=== PATIENT | male | born 1930 ===

== ENCOUNTER 2017-12-11 22:29 | Inpatient (IN) | payer OTHER, MEDICARE ==
[~2017-12-11] VITALS: Ht 162.6 cm; Wt 44.9 kg
--- NOTE | 2017-12-11 22:30 | NUR ---
PT RECEIVED IN ER. PLACED ON CASE VENT WITH VENT SETTINGS OF AC 14, VT 500, FIO2 28%. PT IS TRACHED WITH A PORTEX #8 TRACH. TRACH IS PATENT AND SECURED WITH TRACH TIES. VENT PARAMETERS CHECKED. VENT ALARMS CHECKED. ALARMS ARE ON AND AUDIBLE. SUCTIONED A LARGE AMOUNT OF THICK, GREENISH SECRETIONS. PT RECEIVED TACHYCARDIC. PULSE RATE 128. SPO2 93%. AMBU BAG IS AT BEDSIDE. WILL CONTINUE TO MONITOR.
--- NOTE | 2017-12-11 22:35 | NUR ---
Pt lamonte from [facility] for initial complaint of fast heart rate. Pt trach vent dependent tachypneic, hot to touch and tachycardic with low blood pressure. Dr. Dinh called to bedside. RT at bedside.
--- NOTE | 2017-12-11 22:38 | NUR ---
Dr. Dinh at bedside for MSE
--- NOTE | 2017-12-11 22:44 | NUR ---
Code sepsis called and initiated.
[2017-12-11] MEDS ORDERED: ACETAMINOPHEN 650 MG SUPP.RECT RC ONE ×2 (22:45→23:38)
[2017-12-11] MEDS ORDERED: PIPERACILLIN SODIUM/TAZOBACTAM 3.375 G in IV DEXTROSE 5% 50 ML IV ONE (22:45)
[2017-12-11] MEDS ORDERED: IV NORMAL SALINE 1000 ML BAG IV ONE (22:45)
[2017-12-11] MEDS ORDERED: VANCOMYCIN IV 1,000 MG in IV DEXTROSE 5% 250 ML IV ONE ×2 (22:45→23:45)
--- NOTE | 2017-12-11 23:00 | NUR ---
IV established, labs drawn and sent. Fluid bolus infusing freely to gravity. Indwelling steel pt arrived with dc'd and new steel established. Pt medicated for temp, will monitor for effects of medication. Pt repositioned for comfort.
[2017-12-11 23:08] LABS: BASOPHILS # (AUTO) 0.1 K/uL (0.0-8.0); BASOPHILS % (AUTO) 0.5 % (0.0-2.0); EOSINOPHILS # (AUTO) 0.1 K/uL (0.0-0.7); EOSINOPHILS % (AUTO) 0.4 % (0.0-7.0); HEMATOCRIT 29.1 % (36.7-47.1); HEMOGLOBIN 9.9 g/dL (12.5-16.3); LYMPHOCYTES # (AUTO) 0.5 K/uL (20.0-40.0); LYMPHOCYTES % (AUTO) 2.2 % (20.5-51.5); MEAN CORPUSCULAR HEMOGLOBIN 29.7 uug (23.8-33.4); MEAN CORPUSCULAR HGB CONC 34 g/dL (32.5-36.3); MEAN CORPUSCULAR VOLUME 87.8 fL (73.0-96.2); MONOCYTES # (AUTO) 0.8 K/uL (2.0-10.0); NEUTROPHILS # (AUTO) 19.6 K/uL (1.8-8.9); NEUTROPHILS % (AUTO) 92.9 % (38.5-71.5); PLATELET COUNT (AUTO) 529 K/uL (152-348); RED BLOOD CELL COUNT(AUTO) 3.31 MIL/uL (4.06-5.63); WHITE BLOOD COUNT (AUTO) 21.1 K/uL (3.6-10.2)
[2017-12-11] MEDS ORDERED: METO-356 GT (23:08)
[2017-12-11] MEDS ORDERED: HEPARIN 5000 UNIT INJ (23:08)
[2017-12-11] MEDS ORDERED: TRAM50TA2 GT ×2 (23:08)
[2017-12-11] MEDS ORDERED: ACET-2154 GT (23:08)
[2017-12-11] MEDS ORDERED: LACT1CAP61 GT (23:08)
[2017-12-11] MEDS ORDERED: FERR220S2 GT (23:08)
[2017-12-11] MEDS ORDERED: ASCO500C16 GT (23:08)
[2017-12-11] MEDS ORDERED: NA P133E RC (23:08)
[2017-12-11] MEDS ORDERED: DOCU-141 GT (23:08)
[2017-12-11] MEDS ORDERED: ACET-2605 PO (23:08)
[2017-12-11] MEDS ORDERED: CRAN3875 GT (23:08)
[2017-12-11] MEDS ORDERED: [UNRECOGNIZED DRUG - OTHER] GT (23:08)
[2017-12-11] MEDS ORDERED: PANT40TA2 GT (23:08)
[2017-12-11] MEDS ORDERED: BISA5TAB13 PR (23:08)
[2017-12-11] MEDS ORDERED: MULT-213 GT (23:08)
[2017-12-11] MEDS ORDERED: ONDA4TAB5 GT (23:08)
[2017-12-11] MEDS ORDERED: MAGN400O6 GT (23:08)
[2017-12-11] MEDS ORDERED: ZINC220C8 GT (23:08)
[2017-12-11 23:23] LABS: ABG BASE EXCESS 1.6 mmol/L; ABG HCO3 24.6 mmol/L; ABG PCO2 33.3 mmHg (35.0-45.0); ABG PH 7.487 (7.350-7.450); ABG PO2 53.6 mmHg (75.0-100.0); ABG SITE RIGHT BRACHIAL; ABG TOTAL HEMOGLOBIN 10.6 G/dL (13.5-18.0); COHb 0.8 % (0.5-1.5); MetHb 0.4 % (0.0-1.5); VENT MODE VENT - A/C; VT, ABG 500 mL
[2017-12-11] MEDS ORDERED: VANCOMYCIN IV 200 ML ONE (23:30)
--- NOTE | 2017-12-11 23:30 | NUR ---
FIO2 INCREASED TO 50% PER ABG RESULT. SETTINGS ARE NOW AC 14, VT 500, FIO2 50%. SPO2 NOW 100%. VENT CHECK DONE. PEAK FLOW INCREASED TO 75 TO MAINTAIN 1:2 I:E RATIO. WILL ADJUST VENT SETTINGS ACCORDINGLY. SUCTIONED MODERATE AMOUNT OF THICK, GREENISH SECRETIONS. WILL CONTINUE TO MONITOR PT.
[2017-12-11 23:31] LABS: *BILIRUBIN,URIN NEGATIVE (NEGATIVE); *BLOOD, URINE 3+ (NEGATIVE); *CLARITY,URINE CLOUDY (CLEAR); *COLOR,URINE YELLOW (YELLOW); *KETONES,URINE NEGATIVE (NEGATIVE); *PROTEIN,URINE 2+ (NEGATIVE); *UROBILINOGEN,URINE 0.2 E.U./dl (NORMAL); LEUKOCYTE ESTERASE ,URINE 3+ (NEGATIVE); NITRITE, URINE NEGATIVE (NEGATIVE); PH,URINE 7.5 (5.0-8.0); UGLUCOSE NEGATIVE (NEGATIVE)
[2017-12-11] MEDS ORDERED: PIPERACILLIN/TAZOBACTAM/D5W 50 ML IV ONE (23:31)
[2017-12-11 23:34] LABS: ALANINE AMINOTRANSFERASE 29 U/L (16-63); ALKALINE PHOSPHATASE 204 U/L (50-136); ASPARTATE AMINOTRANSFERASE 23 U/L (15-37); BILIRUBIN,DIRECT 0.1 mg/dL (0.0-0.2); BILIRUBIN,TOTAL 0.2 mg/dL (0.2-1.0); CARBON DIOXIDE 28 mmol/L (21-32); CHLORIDE 101 mmol/L (98-107); CREATININE 2.2 mg/dL (0.6-1.3); GLUCOSE 139 mg/dL (74-106); POTASSIUM 5.3 mmol/L (3.5-5.1); TOTAL PROTEIN, SERUM 8.3 g/dL (6.4-8.2)
[2017-12-11 23:38] LABS: UREA NITROGEN, BLOOD 130 mg/dL (7-18)
[2017-12-11 23:43] LABS: BACTERIA,URINE MODERATE /HPF (NONE SEEN); RBC,URINE TNTC /HPF (0-3); SQUAMOUS EPITHELIAL CELL,UR FEW /HPF (NONE SEEN); WBC,URINE TNTC /HPF (0-3)
[2017-12-11] MEDS ORDERED: AMIKACIN SULFATE 500 MG/2 ML VIAL IV ONE (23:45)
[2017-12-12] VITALS (7 sets, daily range): BP systolic 86–100; BP diastolic 37–52
[2017-12-12] MEDS ORDERED: METRONIDAZOLE 500 MG/NS 100 ML PIGGYBACK IV ONE (00:15)
[2017-12-12] MEDS ORDERED: AMIKACIN SULFATE 500 MG/2 ML VIAL ONE (00:28)
--- NOTE | 2017-12-12 01:09 | NUR ---
MD notified of pt's bp, fluid bolus started. Will monitor for effects of bolus
[2017-12-12] MEDS ORDERED: IV NORMAL SALINE 1000 ML BAG IV ONE (01:15)
--- NOTE | 2017-12-12 01:23 | NUR ---
Report called to TRINI Burgos. Preparing to transfer pt to the floor.
[2017-12-12] MEDS ORDERED: METRONIDAZOLE 500 MG/NS 100ML 100 ML IV ONE (01:29)
--- NOTE | 2017-12-12 02:15 | NUR ---
nsg: pt received fr er via [facility] with dx of sepsis, uti. hx of chronic vent dependent, cva with right sided weakness. no acute distress noted. O2 sat is 98% on 50% FIO2. gt clamped. has multiple pressure ulcer noted. cont to monitor.
[2017-12-12] MEDS ORDERED: ALBUTEROL SULFATE 2.5 MG/3 ML NEBU NEB PRN (02:45)
[2017-12-12] MEDS ORDERED: MORPHINE SULFATE 2 MG/1 ML DISP.SYRIN IV PRN (02:45)
[2017-12-12] MEDS ORDERED: IPRATROPIUM BROMIDE 0.5 MG/2.5 ML NEBU NEB PRN (02:45)
[2017-12-12] MEDS ORDERED: PIPERACILLIN/TAZOBACTAM/D5W 50 ML ONE (05:27)
[2017-12-12 05:37] LABS: ABG BASE EXCESS 0.1 mmol/L; ABG HCO3 23.3 mmol/L; ABG PCO2 32.5 mmHg (35.0-45.0); ABG PH 7.473 (7.350-7.450); ABG SITE LEFT RADIAL; ABG TOTAL HEMOGLOBIN 10.7 G/dL (13.5-18.0); COHb 0.5 % (0.5-1.5); MetHb 0.2 % (0.0-1.5); O2Hb 98.5 % (94.0-97.0); VENT MODE VENT - A/C; VT, ABG 500 mL
[2017-12-12] MEDS: PIPERACILLIN/TAZOBACTAM/D5W 2.25 G in PREMIXED 1 EACH IV SCH ×2 (05:37→12:13)
[2017-12-12] MEDS: IV D5/ 0.9% NACL 1,000 ML IV PRN ×2 (05:37→17:45)
[2017-12-12] MEDS: PANTOPRAZOLE ORAL SUSPENSION 40 MG SUSPDR.PKT GT SCH (05:39)
--- NOTE | 2017-12-12 05:49 | NUR ---
Patient received on AC 14, vt500, 50%fiO2. Decreased FiO2 to 40% per new ABG results. RN Jeanie notified. SXN moderate amounts of thin yellow secretions. AMbubag and spare trach [Portex8] are at bedside. Airway is patent and secured at midline. Will continue to monitor.
[2017-12-12] MEDS ORDERED: Medication Not On Formulary EA (Multivitamins W-Minerals (Multivitamin With Minerals) 1 GT SCH (06:00)
[2017-12-12 06:48] LABS: BASOPHILS % (AUTO) 0.1 % (0.0-2.0); EOSINOPHILS # (AUTO) 0.1 K/uL (0.0-0.7); EOSINOPHILS % (AUTO) 0.3 % (0.0-7.0); HEMATOCRIT 26.6 % (36.7-47.1); HEMOGLOBIN 8.7 g/dL (12.5-16.3); LYMPHOCYTES # (AUTO) 0.6 K/uL (20.0-40.0); LYMPHOCYTES % (AUTO) 2.8 % (20.5-51.5); MEAN CORPUSCULAR HGB CONC 33 g/dL (32.5-36.3); MEAN CORPUSCULAR VOLUME 89.1 fL (73.0-96.2); MONOCYTES % (AUTO) 4.9 % (0.0-11.0); NEUTROPHILS # (AUTO) 19.1 K/uL (1.8-8.9); NEUTROPHILS % (AUTO) 91.9 % (38.5-71.5); PLATELET COUNT (AUTO) 413 K/uL (152-348); RED BLOOD CELL COUNT(AUTO) 2.99 MIL/uL (4.06-5.63); WHITE BLOOD COUNT (AUTO) 20.7 K/uL (3.6-10.2)
[2017-12-12 06:50] LABS: ALANINE AMINOTRANSFERASE 23 U/L (16-63); ALKALINE PHOSPHATASE 169 U/L (50-136); ASPARTATE AMINOTRANSFERASE 22 U/L (15-37); BILIRUBIN,TOTAL 0.2 mg/dL (0.2-1.0); CARBON DIOXIDE 24 mmol/L (21-32); CHLORIDE 107 mmol/L (98-107); GLUCOSE 137 mg/dL (74-106); HDL CHOLESTEROL 25 mg/dL (40-60); MAGNESIUM 1.9 mg/dL (1.8-2.4); PHOSPHOROUS 2.9 mg/dL (2.5-4.9); POTASSIUM 4.6 mmol/L (3.5-5.1); TOTAL PROTEIN, SERUM 7.1 g/dL (6.4-8.2); TRIGLYCERIDES 32 MG/DL (30-150)
[2017-12-12 07:04] LABS: CHOLESTEROL < 50 mg/dL (<200)
[2017-12-12 07:08] LABS: UREA NITROGEN, BLOOD 118 mg/dL (7-18)
--- NOTE | 2017-12-12 07:50 | NUR ---
PT RECEIVED ON CASE VENT WITH CURRENT VENT SETTINGS OF AC 14, VT 500, AND 40% FIO2. #8 PORTEX TRACH IS PATENT AND SECURED WITH TRACH TIE. VENT ALARMS ARE ON AND AUDIBLE. VENT PLUGGED INTO RED OUTLET. PT IS TOLERATING VENT SETTINGS WELL, NO SIGNS OF RESPIRATORY DISTRESS NOTED, PRN TX NOT GIVEN AT THIS TIME. SUCTIONED A SMALL AMOUNT OF THICK WHITE AND YELLOW SECRETIONS. AMBU-BAG AND BACK-UP TRACH IS AT BESIDE. WILL CONTINUE TO MONITOR THROUGHOUT SHIFT.
[2017-12-12] MEDS ORDERED: DOSING PER PHARMACY-AMIKACIN IV XX PRN (08:00)
[2017-12-12] MEDS ORDERED: ZINC SULFATE 220 MG CAPSULE GT SCH (09:00)
[2017-12-12] MEDS ORDERED: [UNRECOGNIZED DRUG - OTHER] GT SCH (09:00)
[2017-12-12] MEDS ORDERED: Medication Not On Formulary EA (Ascorbic Acid (Vitamin C CAPSULE) 500 MG) GT SCH (09:00)
[2017-12-12] MEDS ORDERED: HEPARIN INJ SCH (09:00)
[2017-12-12] MEDS ORDERED: Medication Not On Formulary EA (Lactobacillus Acidophilus (Acidophilus) 1 EACH) GT SCH (09:00)
[2017-12-12] MEDS: FERROUS SULFATE 300 MG/5 ML LIQUID UDC GT SCH (09:14)
[2017-12-12] MEDS: ZINC SULFATE 220 MG CAPSULE GT SCH (09:15)
[2017-12-12] MEDS: DOCUSATE SODIUM 100 MG CAPSULE PO SCH ×2 (09:15→17:44)
[2017-12-12] MEDS: ACIDOPHILUS/BULGARICUS CHEW TAB GT SCH (09:15)
[2017-12-12] MEDS: MULTIVIT, IRON, MIN NO. 8, FA TABLET GT SCH (09:15)
[2017-12-12] MEDS: ASCORBIC ACID 500 MG TABLET GT SCH (09:15)
[2017-12-12] MEDS: HEPARIN SODIUM,PORCINE 5,000 UNITS/ML VIAL SQ SCH ×2 (09:16→20:22)
[2017-12-12] MEDS: PROTEIN SUPPLEMENT (PROSTAT) 30 ML LIQUID GT SCH (09:19)
--- NOTE | 2017-12-12 11:30 | NUR ---
hypotension 86/30 and 88/35. Dr Adams made aware. fluid challenge of 1 liter IV bolus given. gt site with purulent drainage. spec sent to lab for c/s. nasal swab collected for mrsa. as well Addendum: 12/12/17 at 1130 by RUBIN KAUR RN Amended: Links added.
[2017-12-12] MEDS ORDERED: IV NS 1000 ML 1,000 ML IV ONE (11:45)
--- NOTE | 2017-12-12 12:12 | NUR ---
bp 114/54 post fluid challenge Addendum: 12/12/17 at 1213 by RUBIN KAUR RN Amended: Links added.
--- NOTE | 2017-12-12 12:12 | NUR ---
Clinical Pharmacy Note: Amikacin Dosing per Pharmacy Subjective: Amikacin IV to start on this 87 yo male patient for pna & uti (recent hospitalization). Patient received amikacin 500mg IV x1 in ED on 12/12 at midnight ht 162.5 cm wt 46.7 kg Objective: BUN 118/Scr 2 WBC 20.7 Temperature 98.6 Assessment/Plan: Due to elevated srcr & advanced age, will dose by fall off level. Since patient received a dose today in ED, no dose shall be due today. Plan to check amikacin random level tomorrow at 11am for further dosing. Pharmacy shall review srcr in am & adjust the time of draw accordingly. Will follow daily.
--- NOTE | 2017-12-12 16:38 | NUR ---
maikel care done. pending wound consult Addendum: 12/12/17 at 1638 by RUBIN KAUR RN Amended: Links added.
--- NOTE | 2017-12-12 19:43 | NUR ---
Pt received on Yancey vent with current settings of AC 14, VT 500, FiO2 40%. Pt is trached with a Portex 8 trach, which is secure and patent. Pt tolerating vent settings well at this time, no signs of respiratory distress noted. Suctioned pt with small amount of thick pale-yellowish secretions. Continuous pulse ox on, saturation is 100% at this time. Vent alarms functioning and audible, vent plugged in red outlet. Ambu-bag and back-up trach at bedside. Will continue to monitor pt throughout shift.
[2017-12-12] MEDS: LINEZOLID 600 MG TABLET GT SCH (20:21)
[2017-12-12] MEDS: Z GUARD REMEDY PASTE 57 GM TUBE TOP SCH (20:22)
[2017-12-12] MEDS: ACETAMINOPHEN 325 MG TABLET GT PRN (20:23)
--- NOTE | 2017-12-12 21:00 | NUR ---
Still on Yancey vent w/ same settings: AC 14, vt500, FiO2 to 40% w/ trach portex #8 intact. No signs of distress noted. Vital signs WNL. Tele shows NSR.
--- NOTE | 2017-12-12 21:32 | NUR ---
S/P PICC line insertion, double lumen DEENA.
[2017-12-13] VITALS: BP 114/54
--- NOTE | 2017-12-13 | NUR ---
Turned & repositioned, wound care dressing change initiated.
[2017-12-13 04:00] VITALS: BP 121/69
[2017-12-13] MEDS: IV D5/ 0.9% NACL 1,000 ML IV PRN ×2 (05:15→18:57)
[2017-12-13] MEDS: PANTOPRAZOLE ORAL SUSPENSION 40 MG SUSPDR.PKT GT SCH (06:12)
[2017-12-13] MEDS: Z GUARD REMEDY PASTE 57 GM TUBE TOP PRN (06:12)
--- NOTE | 2017-12-13 06:31 | NUR ---
Fibersource HN at 55 ml feeding started. Gtube intact. kept HOB elevated 45 degrees. Suctioned secretions via trach PRN. Sinus rhythm on the monitor.
[2017-12-13 07:02] LABS: BASOPHILS % (AUTO) 0.3 % (0.0-2.0); EOSINOPHILS # (AUTO) 0.4 K/uL (0.0-0.7); EOSINOPHILS % (AUTO) 2.7 % (0.0-7.0); HEMATOCRIT 26.9 % (36.7-47.1); HEMOGLOBIN 8.7 g/dL (12.5-16.3); LYMPHOCYTES # (AUTO) 0.7 K/uL (20.0-40.0); LYMPHOCYTES % (AUTO) 4.7 % (20.5-51.5); MEAN CORPUSCULAR HEMOGLOBIN 29.3 uug (23.8-33.4); MEAN CORPUSCULAR HGB CONC 32 g/dL (32.5-36.3); MEAN CORPUSCULAR VOLUME 90.4 fL (73.0-96.2); MONOCYTES # (AUTO) 0.7 K/uL (2.0-10.0); NEUTROPHILS # (AUTO) 12.8 K/uL (1.8-8.9); NEUTROPHILS % (AUTO) 87.3 % (38.5-71.5); PLATELET COUNT (AUTO) 413 K/uL (152-348); RED BLOOD CELL COUNT(AUTO) 2.98 MIL/uL (4.06-5.63); WHITE BLOOD COUNT (AUTO) 14.7 K/uL (3.6-10.2)
[2017-12-13 07:20] LABS: ALANINE AMINOTRANSFERASE 22 U/L (16-63); ALKALINE PHOSPHATASE 153 U/L (50-136); ASPARTATE AMINOTRANSFERASE 22 U/L (15-37); BILIRUBIN,TOTAL 0.2 mg/dL (0.2-1.0); CARBON DIOXIDE 25 mmol/L (21-32); CHLORIDE 114 mmol/L (98-107); CREATININE 1.9 mg/dL (0.6-1.3); GLUCOSE 117 mg/dL (74-106); PHOSPHOROUS 3.5 mg/dL (2.5-4.9)
[2017-12-13 07:24] VITALS: BP 110/52
[2017-12-13] MEDS ORDERED: FIBERSOURCE HN 1000ML LIQUID GT SCH (07:45)
[2017-12-13 07:46] LABS: UREA NITROGEN, BLOOD 89 mg/dL (7-18)
[2017-12-13 08:38] LABS: LYMPHOCYTES % (MANUAL) 5 % (20-40); MONOCYTES % (MANUAL) 5 % (2-10); NEUTROPHILS % (MANUAL) 90 % (42-75)
[2017-12-13] MEDS: FERROUS SULFATE 300 MG/5 ML LIQUID UDC GT SCH (09:01)
[2017-12-13] MEDS: MULTIVIT, IRON, MIN NO. 8, FA TABLET GT SCH (09:01)
[2017-12-13] MEDS: ACIDOPHILUS/BULGARICUS CHEW TAB GT SCH (09:01)
[2017-12-13] MEDS: ZINC SULFATE 220 MG CAPSULE GT SCH (09:01)
[2017-12-13] MEDS: DOCUSATE SODIUM 100 MG CAPSULE PO SCH (09:01)
[2017-12-13] MEDS: ASCORBIC ACID 500 MG TABLET GT SCH (09:01)
[2017-12-13] MEDS: Z GUARD REMEDY PASTE 57 GM TUBE TOP SCH ×2 (09:02→21:10)
[2017-12-13] MEDS: LINEZOLID 600 MG TABLET GT SCH ×2 (09:08→20:54)
[2017-12-13] MEDS: HEPARIN SODIUM,PORCINE 5,000 UNITS/ML VIAL SQ SCH ×2 (09:09→20:56)
[2017-12-13] MEDS: PROTEIN SUPPLEMENT (PROSTAT) 30 ML LIQUID GT SCH (11:54)
[2017-12-13 12:12] VITALS: BP 139/77
--- NOTE | 2017-12-13 14:41 | NUR ---
WOUND CARE CONSULT: PT FOLLOWED BY SURGICAL TEAM FOR MULTIPLE WOUNDS. DEFER TO SURGICAL TEAM FOR WOUND TREATMENT PLAN. PT ON FIRST STEP CIRRUS MATTRESS. ALL SKIN PROTECTION MEASURES IN PLACE. DISCUSSED WITH NURSING STAFF. MD IN AGREEMENT WITH PLAN OF CARE. CURRENT MARIANNA SCORE IS 11.
[2017-12-13 15:54] VITALS: BP 107/50
--- NOTE | 2017-12-13 17:12 | NUR ---
Clinical Pharmacy Note: Amikacin Dosing per Pharmacy Subjective: Amikacin IV to continue on this 87 yo male patient for pna & uti (recent hospitalization). Patient received amikacin 500mg IV x1 in ED on 12/12 at midnight ht 162.5 cm wt 46.7 kg Objective: BUN 118/Scr 2 WBC 20.7 Temperature 98.6 Assessment/Plan: Due to elevated srcr & advanced age, will dose by fall off level. Amikacin level is ordered today at 1100(result is not out yet). Will follow the level for further dosing. Addendum: 12/13/17 at 1756 by ELLIS MENCHACA ADM Amikacin random level is 5.3 (results reporte now @ 1800) will give another dose of 500 mg x 1
[2017-12-13] MEDS ORDERED: AMIKACIN IV SCH (18:15)
[2017-12-13] MEDS ORDERED: NORMAL SALINE IV SCH (18:15)
[2017-12-13 18:23] LABS: *BILIRUBIN,URIN NEGATIVE (NEGATIVE); *BLOOD, URINE 2+ (NEGATIVE); *COLOR,URINE YELLOW (YELLOW); *KETONES,URINE NEGATIVE (NEGATIVE); *PROTEIN,URINE 2+ (NEGATIVE); *UROBILINOGEN,URINE 0.2 E.U./dl (NORMAL); LEUKOCYTE ESTERASE ,URINE TRACE (NEGATIVE); NITRITE, URINE NEGATIVE (NEGATIVE); UGLUCOSE NEGATIVE (NEGATIVE)
[2017-12-13] MEDS ORDERED: AMIKACIN IV ONE (18:30)
[2017-12-13] MEDS ORDERED: NORMAL SALINE IV ONE (18:30)
--- NOTE | 2017-12-13 18:30 | NUR ---
No residual noted on GTube feeding pt tolerating. Pt is in no acute distress. Consent signed for debridement and equipment setup in the room. Call light is within reach.
[2017-12-13 18:35] LABS: *CLARITY,URINE HAZY (CLEAR)
[2017-12-13 18:37] LABS: COARSE GRANULAR CASTS,URINE 0-3 /LPF; MUCUS,URINE FEW /LPF (0-FEW); RBC,URINE 50-80 /HPF (0-3); SQUAMOUS EPITHELIAL CELL,UR FEW /HPF (NONE SEEN)
[2017-12-13 18:51] LABS: *CREATININE,URINE 16.8 mg/dL (30-125); *URINE TOTAL PROTEIN RANDOM 101.3 mg/dL (<150/24HR)
--- NOTE | 2017-12-13 19:18 | NUR ---
Pt rec'd on Yancey settings AC 14, VT 500 and FIO2-40%. No resp. distress noted. Portex 8 is patent and secure. B/U Portex 8 and BVM at bedside. Pt to be monitored throughhout the shift and adm'd resp neb txs PRN per MD orders. Yancey alarm parameters have been checked and remain audible.
[2017-12-13 19:44] LABS: YEAST,URINE FEW /HPF (NONE SEEN)
[2017-12-13 20:00] VITALS: BP 121/55
[2017-12-13 20:01] LABS: *OCCULT BLOOD STOOL POSITIVE (NEGATIVE)
[2017-12-13] MEDS: DOCUSATE SODIUM 100 MG/10 ML LIQUID UDC GT SCH (20:54)
[2017-12-13] MEDS: ACETAMINOPHEN 325 MG TABLET GT PRN (20:54)
--- NOTE | 2017-12-13 21:32 | NUR ---
Patient awake, on Yancey vent w/ same settings: AC 14, vt500, FiO2 to 40% w/ trach portex #8 intact. Coughing on & off, suctioned PRN. Thick greenish to yellowish secretions noted. Tolerating continuos G-tube feeding of Fibersource HN at 55 ml/hr, no residual. kept HOB up. Vital signs WNL. Tele shows NSR.
[2017-12-14] VITALS: BP 128/64
--- NOTE | 2017-12-14 | NUR ---
Vital signs WNL. NPO status, G-tube feeding held for now. For procedure in AM. Sinus rhythm on the monitor.
--- NOTE | 2017-12-14 04:28 | NUR ---
Wound care treatment, oral care & bed bath provided today. G-tube clamped at this time, for wound debridement today. Suctioned trach & oral PRN. Vital signs remains stable. Sinus tachy w/ HR 101 on the monitor.
--- NOTE | 2017-12-14 05:20 | NUR ---
Pt remains on Yancey with no changes made to the ventilator settings. No resp. distress noted. Pt was routinely sx'd and appeared to tolerate ventilator settings well. Portex 8 remains patent and secure; B/U Portex and and BVM are at bedside. Yancey alarm parameters have been checked and remain audible.
[2017-12-14] MEDS: PANTOPRAZOLE ORAL SUSPENSION 40 MG SUSPDR.PKT GT SCH (07:00)
[2017-12-14 07:50] VITALS: BP 136/79
--- NOTE | 2017-12-14 07:58 | NUR ---
Awake, non verbal, on moderate high back rest. Trach to vent with the setting of TV500, AC 14, FIO2 40%, with O2 sat of 99%. Trach suctioned with greenish thick secretions. Oral care done. G Tube intact, feedings off. PICC line RUE, IVF infusing. Blood drawn for lab.
--- NOTE | 2017-12-14 09:00 | NUR ---
Wound debridement of back, buttocks, sacral done at bedside. Repositioned comfortably.
--- NOTE | 2017-12-14 10:05 | NUR ---
Clinical Pharmacy Note: Amikacin Dosing per Pharmacy Subjective: Amikacin IV to continue on this 87 yo male patient for pna & uti (recent hospitalization). Patient received amikacin 500mg IV x1 in ED on 12/12 at midnight ht 162.5 cm wt 46.7 kg Objective: BUN 89/Scr 1.9 (12/13) WBC 14.7 (12/13) Temperature 98 Random level: pending send out (today at 0800) Assessment/Plan: Due to elevated srcr & advanced age, will dose by fall off level. Last dose yesterday at 1800 of 500mg. Pending random level today, will check when send out is complete later today and dose as needed. Will follow Addendum: 12/14/17 at 1341 by ZAID WASHINGTON ADM RANDOM LEVEL THIS AM WAS 15.9, NO DOSE TODAY, ORDERED NEXT RANDOM WITH AM LABS TOMORROW. WILL CHECK AND RE-DOSE NEEDED.
[2017-12-14] MEDS: FERROUS SULFATE 300 MG/5 ML LIQUID UDC GT SCH (10:29)
[2017-12-14] MEDS: ACIDOPHILUS/BULGARICUS CHEW TAB GT SCH (10:29)
[2017-12-14] MEDS: DOCUSATE SODIUM 100 MG/10 ML LIQUID UDC GT SCH ×2 (10:29→20:28)
[2017-12-14] MEDS: ZINC SULFATE 220 MG CAPSULE GT SCH (10:30)
[2017-12-14] MEDS: ASCORBIC ACID 500 MG TABLET GT SCH (10:30)
[2017-12-14] MEDS: MULTIVIT, IRON, MIN NO. 8, FA TABLET GT SCH (10:30)
[2017-12-14] MEDS: LINEZOLID 600 MG TABLET GT SCH (10:30)
--- NOTE | 2017-12-14 10:30 | NUR ---
Oral care, trach care done. Secretions suctioned.
[2017-12-14] MEDS: HEPARIN SODIUM,PORCINE 5,000 UNITS/ML VIAL SQ SCH ×2 (10:35→20:26)
[2017-12-14] MEDS: IV 1/2NS 1000 ML 1,000 ML IV PRN (10:37)
[2017-12-14] MEDS: Z GUARD REMEDY PASTE 57 GM TUBE TOP SCH ×2 (10:40→20:28)
[2017-12-14] MEDS: SODIUM HYPOCHLORITE 0.125% 473 ML BOTTLE TP SCH (10:40)
[2017-12-14] MEDS: PROTEIN SUPPLEMENT (PROSTAT) 30 ML LIQUID GT SCH (10:40)
[2017-12-14 11:06] VITALS: BP 152/75
[2017-12-14] MEDS: ACETAMINOPHEN 650 MG/20.3 ML LIQUID UDC GT PRN ×2 (11:13→20:00)
--- NOTE | 2017-12-14 11:30 | NUR ---
HR 136, increased RR, Temp 101.1. Tylenol given. Dr. Garcia informed of condition.
[2017-12-14 13:00] VITALS: BP 127/61
--- NOTE | 2017-12-14 13:32 | NUR ---
HR 119. Transferred to CCU. Report given to Jazzy
[2017-12-14] MEDS ORDERED: ENTERAL NUTRITION FORMULA GT PRN (15:30)
[2017-12-14 16:00] VITALS: BP 122/60
[2017-12-14] MEDS: NUTREN 1.5 1000ML BAG GT PRN (16:00)
--- NOTE | 2017-12-14 19:09 | NUR ---
Pt tachypneic and tachycardic, RN aware, received on Yancey vent with the following settings of AC-14, Vt-500, FIO2-40%, trached with Portex #8 cuffed trach, which is in place and secure. Airway care done, pt responded to physical stimuli. Resus. bag and back up trach at bedside. Vent and alarms on and audible.
[2017-12-14 20:00] VITALS: BP 126/72
[2017-12-14] MEDS ORDERED: CEFTAZIDIME 1 G in IV DEXTROSE 5% 50 ML IV SCH (21:00)
[2017-12-15 00:01] VITALS: BP 133/77
[2017-12-15] MEDS: IV 1/2NS 1000 ML 1,000 ML IV PRN ×2 (00:45→17:31)
[2017-12-15 04:00] VITALS: BP 105/63
[2017-12-15 05:23] LABS: BASOPHILS % (AUTO) 0.3 % (0.0-2.0); EOSINOPHILS # (AUTO) 0.3 K/uL (0.0-0.7); EOSINOPHILS % (AUTO) 1.6 % (0.0-7.0); HEMATOCRIT 23.5 % (36.7-47.1); HEMOGLOBIN 7.8 g/dL (12.5-16.3); LYMPHOCYTES # (AUTO) 1.1 K/uL (20.0-40.0); LYMPHOCYTES % (AUTO) 6.7 % (20.5-51.5); MEAN CORPUSCULAR HGB CONC 33 g/dL (32.5-36.3); MEAN CORPUSCULAR VOLUME 90.3 fL (73.0-96.2); MONOCYTES # (AUTO) 0.8 K/uL (2.0-10.0); MONOCYTES % (AUTO) 4.6 % (0.0-11.0); NEUTROPHILS # (AUTO) 14.5 K/uL (1.8-8.9); NEUTROPHILS % (AUTO) 86.8 % (38.5-71.5); PLATELET COUNT (AUTO) 430 K/uL (152-348); WHITE BLOOD COUNT (AUTO) 16.7 K/uL (3.6-10.2)
[2017-12-15 05:26] LABS: ALANINE AMINOTRANSFERASE 15 U/L (16-63); ALKALINE PHOSPHATASE 119 U/L (50-136); ASPARTATE AMINOTRANSFERASE 17 U/L (15-37); BILIRUBIN,TOTAL 0.2 mg/dL (0.2-1.0); CARBON DIOXIDE 22 mmol/L (21-32); CHLORIDE 119 mmol/L (98-107); CREATININE 1.8 mg/dL (0.6-1.3); GLUCOSE 137 mg/dL (74-106); MAGNESIUM 1.6 mg/dL (1.8-2.4); PHOSPHOROUS 2.8 mg/dL (2.5-4.9); POTASSIUM 3.4 mmol/L (3.5-5.1); TOTAL PROTEIN, SERUM 6.5 g/dL (6.4-8.2); UREA NITROGEN, BLOOD 64 mg/dL (7-18)
[2017-12-15] MEDS: PANTOPRAZOLE ORAL SUSPENSION 40 MG SUSPDR.PKT GT SCH (06:20)
--- NOTE | 2017-12-15 07:25 | NUR ---
PT REC'D ON CASE VENT, TOLERATING CURRENT SETTINGS WELL AC14 500VT 40%FiO2 0PEEP. PORTEX [address] PATENT AND SECURED WITH TRACH TIE, NO WEANING/ABG'S ORDERED FOR THIS AM. VENT ALARMS AUDIBLE CHECKED AND RESET. BACK-UP TRACH/BVM AT BEDSIDE. WILL CONT TO MONITOR AND REPORT ANY CHANGES.
--- NOTE | 2017-12-15 07:30 | NUR ---
Report received.Pt remains awake,alert,responsive,maintained good eye contact.No s/s of pain,discomfort.ST on monitor.BP remains WNL.Respiration even,unlabored.Trach tube Portex #8 connected to ventilator.No SOB noted.Suctioned with moderate amount of thick yellow secretions.Gt intact,patent.Turned,repositioned for comfort.Heels floated on pillows.Will continue to monitor.
[2017-12-15 08:00] VITALS: BP 143/79
[2017-12-15] MEDS: HEPARIN SODIUM,PORCINE 5,000 UNITS/ML VIAL SQ SCH ×2 (09:00→20:26)
--- NOTE | 2017-12-15 09:00 | NUR ---
Seen,examined by with new orders.
--- NOTE | 2017-12-15 09:30 | NUR ---
Echocardiogram was done at bedside.
[2017-12-15] MEDS: ACIDOPHILUS/BULGARICUS CHEW TAB GT SCH (10:00)
[2017-12-15] MEDS: FERROUS SULFATE 300 MG/5 ML LIQUID UDC GT SCH (10:00)
[2017-12-15] MEDS: ACETAMINOPHEN 650 MG/20.3 ML LIQUID UDC GT PRN (10:00)
[2017-12-15] MEDS: MULTIVIT, IRON, MIN NO. 8, FA TABLET GT SCH (10:01)
[2017-12-15] MEDS: ZINC SULFATE 220 MG CAPSULE GT SCH (10:01)
[2017-12-15] MEDS: PROTEIN SUPPLEMENT (PROSTAT) 30 ML LIQUID GT SCH (10:01)
[2017-12-15] MEDS: ASCORBIC ACID 500 MG TABLET GT SCH (10:01)
[2017-12-15] MEDS: DOCUSATE SODIUM 100 MG/10 ML LIQUID UDC GT SCH ×2 (10:02→20:25)
[2017-12-15] MEDS: Z GUARD REMEDY PASTE 57 GM TUBE TOP SCH ×2 (10:02→20:25)
[2017-12-15] MEDS: SODIUM HYPOCHLORITE 0.125% 473 ML BOTTLE TP SCH (10:03)
[2017-12-15] MEDS ORDERED: MAGNESIUM SULFATE/D5W 100 ML IV SCH (10:15)
[2017-12-15] MEDS ORDERED: POTASSIUM CHLORIDE 20 MEQ POWDER PACKET GT ONE (10:15)
--- NOTE | 2017-12-15 11:00 | NUR ---
Seen,examined by .
[2017-12-15] MEDS: MORPHINE SULFATE 4 MG/1 ML DISP.SYRIN IV PRN (11:42)
[2017-12-15] MEDS: PIPERACILLIN/TAZOBACTAM/D5W 2.25 G in PREMIXED 1 EACH IV SCH ×3 (11:58→23:22)
[2017-12-15 12:00] VITALS: BP 117/62
[2017-12-15 16:00] VITALS: BP 121/64
[2017-12-15 20:00] VITALS: BP 112/60
--- NOTE | 2017-12-15 20:00 | NUR ---
Awake, alert; All extremities rigid/contracted. Chronic trach to vent; comfortable on current settings. Stable rhythm and VS. Tube feedings well tolerated. IVF infusing well via PICC. Multiple wound and skin issues, on special mattress. Requires frequent turning and repositioning. Nursing comfort measures observed at all times. Aspiration precautions observed. Contact isolation maintained. Please see DEANNE flowsheet for full assessment and clinical data.
[2017-12-16] VITALS (13 sets, daily range): BP systolic 111–158; BP diastolic 58–88
--- NOTE | 2017-12-16 02:29 | NUR ---
PT ON CONT CASE VENT WITH PORTEX # [address] AND SECURED, WITH SAME CURRENT VENT SETTINGS, A/C 14, VT 500ML, 40%, ORAL CARE DONE AND TRACH CARE; CHECK CUFF, CHANGE HME, PT DOES ASSIST MOST OF THE TIME, , SUCTIONED LIGHT PALE YELL TINGE SECRETIONS, WITH GOOD COUGH EFFORT, SUCTION MOUTH WITH LINDA BANGURA WELL; PULSE OXY CONT AT BEDSIDE, 99-100%; WITH ADEQUATE VENTILATION, NO VENT CHANGES MADE AT THIS TIME, ALL ALARMS OK, AMBU BAG AT BEDSIDE,PIP 20CM APPROX. Barry VICTORIAP Addendum: 12/16/17 at 0232 by ANUJ ALATORRE RT Amended: Links added.
[2017-12-16] MEDS: MORPHINE SULFATE 4 MG/1 ML DISP.SYRIN IV PRN (04:00)
--- NOTE | 2017-12-16 04:00 | NUR ---
Morphine IVP given for max comfort. AM care done; Trach care done with inner cannula Portex #8 changed. Turned/repositioned q 2hr and PRN. HOB up per VAP protocol. Aspiration precautions observed. Remains afebrile. Stable rhythm and VS. Continues to sleep.
[2017-12-16] MEDS: Z GUARD REMEDY PASTE 57 GM TUBE TOP PRN (04:01)
[2017-12-16] MEDS ORDERED: DOSING PER PHARMACY-AMIKACIN IV XX PRN (06:15)
[2017-12-16] MEDS: PIPERACILLIN/TAZOBACTAM/D5W 2.25 G in PREMIXED 1 EACH IV SCH ×4 (06:28→23:16)
[2017-12-16] MEDS: PANTOPRAZOLE ORAL SUSPENSION 40 MG SUSPDR.PKT GT SCH (06:28)
[2017-12-16 06:47] LABS: BASOPHILS # (AUTO) 0.1 K/uL (0.0-8.0); BASOPHILS % (AUTO) 0.3 % (0.0-2.0); EOSINOPHILS # (AUTO) 0.6 K/uL (0.0-0.7); HEMATOCRIT 23.7 % (36.7-47.1); HEMOGLOBIN 7.7 g/dL (12.5-16.3); LYMPHOCYTES # (AUTO) 0.9 K/uL (20.0-40.0); MEAN CORPUSCULAR HEMOGLOBIN 29.1 uug (23.8-33.4); MEAN CORPUSCULAR HGB CONC 32 g/dL (32.5-36.3); MEAN CORPUSCULAR VOLUME 90.1 fL (73.0-96.2); MONOCYTES # (AUTO) 0.6 K/uL (2.0-10.0); MONOCYTES % (AUTO) 3.2 % (0.0-11.0); NEUTROPHILS # (AUTO) 16.3 K/uL (1.8-8.9); NEUTROPHILS % (AUTO) 88.5 % (38.5-71.5); PLATELET COUNT (AUTO) 434 K/uL (152-348); RED BLOOD CELL COUNT(AUTO) 2.63 MIL/uL (4.06-5.63); WHITE BLOOD COUNT (AUTO) 18.4 K/uL (3.6-10.2)
[2017-12-16 06:56] LABS: ALANINE AMINOTRANSFERASE 10 U/L (16-63); ALKALINE PHOSPHATASE 123 U/L (50-136); ASPARTATE AMINOTRANSFERASE 20 U/L (15-37); BILIRUBIN,TOTAL 0.2 mg/dL (0.2-1.0); CARBON DIOXIDE 24 mmol/L (21-32); CHLORIDE 116 mmol/L (98-107); CREATININE 1.8 mg/dL (0.6-1.3); GLUCOSE 143 mg/dL (74-106); PHOSPHOROUS 3.6 mg/dL (2.5-4.9); POTASSIUM 4.2 mmol/L (3.5-5.1); TOTAL PROTEIN, SERUM 6.7 g/dL (6.4-8.2); UREA NITROGEN, BLOOD 60 mg/dL (7-18)
[2017-12-16 07:33] LABS: BAND % (MANUAL) 4 % (0-10); EOSINOPHILS % (MANUAL) 6 % (0-8); LYMPHOCYTES % (MANUAL) 5 % (20-40); METAMYELOCYTES % 1 % (0-1); MONOCYTES % (MANUAL) 3 % (2-10); MYELOCYTES % 2 % (0-0); NEUTROPHILS % (MANUAL) 79 % (42-75)
--- NOTE | 2017-12-16 07:40 | NUR ---
Patient received on AC 14, vt500, 40% . He is trached with a portex 8. SXN moderate amounts of thin yellow secretions. AMbubag and spare trach [Portex8] are at bedside. Oral/Trach care rendered. No complications noted. Airway is patent and secured at midline. Will continue to monitor.
[2017-12-16] MEDS: ASCORBIC ACID 500 MG TABLET GT SCH (08:41)
[2017-12-16] MEDS: ZINC SULFATE 220 MG CAPSULE GT SCH (08:41)
[2017-12-16] MEDS: MULTIVIT, IRON, MIN NO. 8, FA TABLET GT SCH (08:41)
[2017-12-16] MEDS: FERROUS SULFATE 300 MG/5 ML LIQUID UDC GT SCH (08:41)
[2017-12-16] MEDS: DOCUSATE SODIUM 100 MG/10 ML LIQUID UDC GT SCH ×2 (08:41→20:26)
[2017-12-16] MEDS: PROTEIN SUPPLEMENT (PROSTAT) 30 ML LIQUID GT SCH (08:41)
[2017-12-16] MEDS: ACIDOPHILUS/BULGARICUS CHEW TAB GT SCH (08:41)
[2017-12-16] MEDS: Z GUARD REMEDY PASTE 57 GM TUBE TOP SCH ×2 (08:42→20:26)
[2017-12-16] MEDS: IV 1/2NS 1000 ML 1,000 ML IV PRN (08:43)
[2017-12-16] MEDS: NUTREN 1.5 1000ML BAG GT PRN (08:45)
[2017-12-16] MEDS: HEPARIN SODIUM,PORCINE 5,000 UNITS/ML VIAL SQ SCH ×2 (08:46→20:27)
[2017-12-16] MEDS: SODIUM HYPOCHLORITE 0.125% 473 ML BOTTLE TP SCH (08:47)
[2017-12-16] MEDS ORDERED: AMIKACIN IV ONE (10:00)
[2017-12-16] MEDS ORDERED: NORMAL SALINE IV ONE (10:00)
--- NOTE | 2017-12-16 15:47 | NUR ---
Clinical pharmacy note-Amikacin per pharmacy Subjective: To restart Amikacin on this patient for sepsis/UTI. Objective: BUN 60 Scr 1.8 WBC 18.4 Temp 99.5 UC positive pseudomonas(on Zosyn but not sensitive) Assessment/Plan: Due to decreased renal function, will continue to dose by fall-off random level. Amikacin 500mg IV x1 given today at 1000. Amikacin random is on order for tomorrow at 0600. Will follow the level for further dosing.
--- NOTE | 2017-12-16 20:00 | NUR ---
Chronic trach to vent, no weaning. Comfortable on current vent settings. Awake, alert, resistive to care. All extremities rigid, contracted. On going skin/wound issues. Requires frequent turning and repositioning. Stable VS and rhythm. Tube feeding well tolerated; had very large stool incontinence. Kept clean and comfortable. HOB elevated, aspiration precautions observed; contact isolation maintained at all times. Please see DEANNE flowsheet for full assessment and clinical data.
[2017-12-17 00:05] VITALS: BP 151/86
[2017-12-17] MEDS: MORPHINE SULFATE 4 MG/1 ML DISP.SYRIN IV PRN (00:49)
[2017-12-17] MEDS: IV 1/2NS 1000 ML 1,000 ML IV PRN ×2 (01:32→23:00)
[2017-12-17 04:00] VITALS: BP 125/71
--- NOTE | 2017-12-17 06:07 | NUR ---
Patient remains on Yancey with no changes made to the ventilator settings. No resp. distress noted. Patient was routinely suctioned and appeared to tolerate ventilator settings well. Portex 8 remains patent and secure; Backup Portex 8 and and resusc. bag are at bedside. Yancey alarm parameters have been checked and remain audible.
[2017-12-17 06:35] LABS: BASOPHILS % (AUTO) 0.2 % (0.0-2.0); EOSINOPHILS # (AUTO) 0.6 K/uL (0.0-0.7); EOSINOPHILS % (AUTO) 2.8 % (0.0-7.0); HEMATOCRIT 24.3 % (36.7-47.1); LYMPHOCYTES % (AUTO) 4.8 % (20.5-51.5); MEAN CORPUSCULAR HEMOGLOBIN 29.9 uug (23.8-33.4); MEAN CORPUSCULAR HGB CONC 33 g/dL (32.5-36.3); MEAN CORPUSCULAR VOLUME 90.5 fL (73.0-96.2); MONOCYTES # (AUTO) 0.6 K/uL (2.0-10.0); MONOCYTES % (AUTO) 2.8 % (0.0-11.0); NEUTROPHILS # (AUTO) 17.9 K/uL (1.8-8.9); NEUTROPHILS % (AUTO) 89.4 % (38.5-71.5); PLATELET COUNT (AUTO) 441 K/uL (152-348); RED BLOOD CELL COUNT(AUTO) 2.69 MIL/uL (4.06-5.63)
[2017-12-17] MEDS: PANTOPRAZOLE ORAL SUSPENSION 40 MG SUSPDR.PKT GT SCH (06:38)
[2017-12-17] MEDS: PIPERACILLIN/TAZOBACTAM/D5W 2.25 G in PREMIXED 1 EACH IV SCH ×3 (06:38→17:24)
[2017-12-17] MEDS: Z GUARD REMEDY PASTE 57 GM TUBE TOP PRN (06:47)
[2017-12-17 06:56] LABS: CARBON DIOXIDE 24 mmol/L (21-32); CHLORIDE 113 mmol/L (98-107); CREATININE 1.8 mg/dL (0.6-1.3); GLUCOSE 135 mg/dL (74-106); MAGNESIUM 1.8 mg/dL (1.8-2.4); PHOSPHOROUS 4.1 mg/dL (2.5-4.9); UREA NITROGEN, BLOOD 56 mg/dL (7-18)
[2017-12-17 07:55] VITALS: BP 155/79
[2017-12-17 08:18] LABS: BAND % (MANUAL) 5 % (0-10); EOSINOPHILS % (MANUAL) 4 % (0-8); LYMPHOCYTES % (MANUAL) 4 % (20-40); METAMYELOCYTES % 1 % (0-1); MONOCYTES % (MANUAL) 3 % (2-10); MYELOCYTES % 3 % (0-0); NEUTROPHILS % (MANUAL) 80 % (42-75)
[2017-12-17] MEDS: DOCUSATE SODIUM 100 MG/10 ML LIQUID UDC GT SCH ×2 (08:59→20:37)
[2017-12-17] MEDS: FERROUS SULFATE 300 MG/5 ML LIQUID UDC GT SCH (08:59)
[2017-12-17] MEDS: ZINC SULFATE 220 MG CAPSULE GT SCH (09:00)
[2017-12-17] MEDS: ACIDOPHILUS/BULGARICUS CHEW TAB GT SCH (09:00)
[2017-12-17] MEDS: Z GUARD REMEDY PASTE 57 GM TUBE TOP SCH ×2 (09:00→20:38)
[2017-12-17] MEDS: ASCORBIC ACID 500 MG TABLET GT SCH (09:00)
[2017-12-17] MEDS: PROTEIN SUPPLEMENT (PROSTAT) 30 ML LIQUID GT SCH (09:00)
[2017-12-17] MEDS: MULTIVIT, IRON, MIN NO. 8, FA TABLET GT SCH (09:00)
[2017-12-17] MEDS: SODIUM HYPOCHLORITE 0.125% 473 ML BOTTLE TP SCH (09:11)
[2017-12-17] MEDS: HEPARIN SODIUM,PORCINE 5,000 UNITS/ML VIAL SQ SCH ×2 (09:12→20:38)
[2017-12-17] MEDS: NUTREN 1.5 1000ML BAG GT PRN (09:36)
[2017-12-17 11:22] VITALS: BP 127/79
--- NOTE | 2017-12-17 13:50 | NUR ---
PT TRANSPORTED TO CT. NO DISTRESS NOTED DURING OR AFTER TRANSPORT. PT REMAINS ON CASE VENT, SETTINGS AC 14, Vt 500, 40% FIO2, TOLERATING SETTINGS WELL. PORTEX TRACH IS PATENT AND SECURED WITH TIES. SUCTIONED LARGE AMOUNTS OF THICK YELLOW SECRETIONS. BVM AND BACK UP TRACH AT BEDSIDE, ALARMS ARE ON AND AUDIBLE.
[2017-12-17 15:42] VITALS: BP 115/63
--- NOTE | 2017-12-17 16:57 | NUR ---
Clinical pharmacy note-Amikacin per pharmacy Subjective: To continue Amikacin on this patient for sepsis/UTI. Objective: BUN 56 Scr 1.8 WBC 20 Temp 98.3 Amikacin random level (drawn at 0600): pending - level post amikacin 500mg IV x1 given on 12/16 at 1000 Assessment/Plan: Due to decreased renal function, will continue to dose by fall-off random level. Amikacin random level from this am is still pending. Will follow the level for further dosing. Pharmacy shall review srcr in am & decide when to order next random level. Will follow up Addendum: 12/17/17 at 1714 by CORAL BANUELOS AMIKACIN RANDOM LEVEL 14.2- NO DOSE SHALL BE GIVEN TODAY
--- NOTE | 2017-12-17 19:25 | NUR ---
Patient received on Viasys Yancey settings AC 14, VT 500 and FIO2-40%. No resp. distress noted. Portex 8 is patent and secure. Backup Portex 8 and resusc. bag is at bedside. Patient to be monitored throughout the shift and adm'd resp neb txs PRN per MD orders. Yancey alarm parameters have been checked and remain audible.
[2017-12-17 20:00] VITALS: BP 130/63
--- NOTE | 2017-12-17 20:00 | NUR ---
PATIENT TOLERATED PRESENT VENT SETTING WELL,O2 SAT 99% ,PULSE OX MONITOR AT BEDSIDE, SR ON MONITOR,AFEBRILE,HAS MULTIPLE PRESSURE WOUND, DRESSING C/D/I, WOUND CONTACT ISOLATION OBSERVED,PATIENT RESTING APPEARS COMFORTABLE.
[2017-12-18] VITALS: BP 124/75
--- NOTE | 2017-12-18 00:10 | NUR ---
TURN AND REPOSITION Q 2H,VITAL SIGNS STABLE,PATIENT TOLERATED G TUBE FEEDING AT 45 ML/HR GOAL MET,NO RESIDUAL,SLEEPING OFF AND ON NO DISTRESS.
[2017-12-18] MEDS: PIPERACILLIN/TAZOBACTAM/D5W 2.25 G in PREMIXED 1 EACH IV SCH ×5 (00:23→23:27)
[2017-12-18 04:00] VITALS: BP 115/48
--- NOTE | 2017-12-18 05:40 | NUR ---
Patient remains on Viasys Yancey with no changes made to the settings. No resp. distress noted. Pt was routinely suctioned and appeared to tolerate ventilator settings well. Portex 8 remains patent and secure; Backup Portex 8 and BVM at bedside. Yancey alarm parameters have been checked and remain audible.
--- NOTE | 2017-12-18 06:00 | NUR ---
HOB ELEVATED,TRACHEOSTOMY CARE AND ORAL CARE DONE.SR ON MONITOR,GOOD URINE OUT PUT,DRESSING CHANGE TO BILATERAL HEELS,OFFLOADING .
[2017-12-18] MEDS: PANTOPRAZOLE ORAL SUSPENSION 40 MG SUSPDR.PKT GT SCH (06:27)
[2017-12-18 07:31] LABS: CARBON DIOXIDE 24 mmol/L (21-32); CHLORIDE 111 mmol/L (98-107); CREATININE 1.8 mg/dL (0.6-1.3); GLUCOSE 114 mg/dL (74-106); MAGNESIUM 1.7 mg/dL (1.8-2.4); PHOSPHOROUS 4.3 mg/dL (2.5-4.9); POTASSIUM 3.8 mmol/L (3.5-5.1); UREA NITROGEN, BLOOD 51 mg/dL (7-18)
[2017-12-18 07:35] LABS: BASOPHILS % (AUTO) 0.3 % (0.0-2.0); EOSINOPHILS # (AUTO) 0.6 K/uL (0.0-0.7); EOSINOPHILS % (AUTO) 3.2 % (0.0-7.0); HEMATOCRIT 24.2 % (36.7-47.1); LYMPHOCYTES % (AUTO) 5.5 % (20.5-51.5); MEAN CORPUSCULAR HEMOGLOBIN 29.5 uug (23.8-33.4); MEAN CORPUSCULAR HGB CONC 33 g/dL (32.5-36.3); MEAN CORPUSCULAR VOLUME 89.8 fL (73.0-96.2); MONOCYTES # (AUTO) 0.6 K/uL (2.0-10.0); MONOCYTES % (AUTO) 3.3 % (0.0-11.0); NEUTROPHILS # (AUTO) 16.1 K/uL (1.8-8.9); NEUTROPHILS % (AUTO) 87.7 % (38.5-71.5); PLATELET COUNT (AUTO) 433 K/uL (152-348); WHITE BLOOD COUNT (AUTO) 18.3 K/uL (3.6-10.2)
[2017-12-18 08:00] VITALS: BP 145/67
[2017-12-18] MEDS: FERROUS SULFATE 300 MG/5 ML LIQUID UDC GT SCH (08:58)
[2017-12-18] MEDS: PROTEIN SUPPLEMENT (PROSTAT) 30 ML LIQUID GT SCH (08:59)
[2017-12-18] MEDS: DOCUSATE SODIUM 100 MG/10 ML LIQUID UDC GT SCH ×2 (08:59→20:54)
[2017-12-18] MEDS: ASCORBIC ACID 500 MG TABLET GT SCH (08:59)
[2017-12-18] MEDS: MULTIVIT, IRON, MIN NO. 8, FA TABLET GT SCH (08:59)
[2017-12-18] MEDS: ZINC SULFATE 220 MG CAPSULE GT SCH (08:59)
[2017-12-18] MEDS: ACIDOPHILUS/BULGARICUS CHEW TAB GT SCH (08:59)
[2017-12-18] MEDS: SODIUM HYPOCHLORITE 0.125% 473 ML BOTTLE TP SCH (09:00)
[2017-12-18] MEDS: Z GUARD REMEDY PASTE 57 GM TUBE TOP SCH ×2 (09:00→20:46)
[2017-12-18] MEDS: HEPARIN SODIUM,PORCINE 5,000 UNITS/ML VIAL SQ SCH ×2 (09:57→20:49)
[2017-12-18] MEDS ORDERED: MAGNESIUM SULFATE/D5W 100 ML IV SCH (11:00)
[2017-12-18 11:09] VITALS: BP 146/76
[2017-12-18 11:43] LABS: NEUTROPHILS % (MANUAL) 89 % (42-75)
[2017-12-18 11:44] LABS: BAND % (MANUAL) 1 % (0-10); EOSINOPHILS % (MANUAL) 5 % (0-8); LYMPHOCYTES % (MANUAL) 4 % (20-40); MONOCYTES % (MANUAL) 1 % (2-10)
[2017-12-18] MEDS: IV 1/2NS 1000 ML 1,000 ML IV PRN (13:51)
--- NOTE | 2017-12-18 14:29 | NUR ---
Clinical pharmacy note-Amikacin per pharmacy Subjective: To continue Amikacin on this patient for sepsis/UTI. Objective: BUN 51 Scr 1.8 WBC 18.3 Temp 98.7 random level: 14.2 yesterday at 0600 Assessment/Plan: Last dose amikacin 500mg given on 12/16 @ 1000. Based on last level and Scr, no dose for today. Next random ordered for tomorrow with am labs @0600. Will check random level tomorrow when available and re-dose as appropriate. Will follow
[2017-12-18 15:05] VITALS: BP 108/72
--- NOTE | 2017-12-18 16:51 | NUR ---
patient to be transferred to I[facility] WITH DEANNE STATUS. Drsing on back completed with dakin solution wet to dry. no odor noted wound clean .Afebrile
--- NOTE | 2017-12-18 18:17 | NUR ---
RECEIVED PT STABLE ON CURRENT VENT SETTINGS OF AC 14, VT 500 AND FI02 4O%. O2 SATURATION HAS BEEN RUNNING 95-100% ALL DAY. SUCTIONED REGULARLY WITH LARGE AMOUNT OF THICK PALE YELLOW SECRETIONS. NO CHANGES ORDERED WITH SETTINGS TODAY.
--- NOTE | 2017-12-18 19:04 | NUR ---
Received pt on Yancey vent with the following settings of AC-14, Vt-500, FIO2-40%, trached with Portex #8 cuffed trach, which is in place and secure. Pt tachypneic. Airway care done, pt responded to physical stimuli. Cont. pulse ox on. Resus. bag and back up trach at bedside. Vent and alarms checked and reset.
--- NOTE | 2017-12-18 19:30 | NUR ---
patient transfer to ccu -1,DEANNE status,patient awake, alert,non verbal,o2 sat 99% ,SR with PAC's on monitor,patient been stable to same vent setting,turn and reposition q 2h, off loading bilateral heels on pillows,continue g tube feeding at 45ml/hr,no residual,has moderate soft stool,continue closely monitor.
[2017-12-18 20:00] VITALS: BP 122/71
--- NOTE | 2017-12-18 20:37 | NUR ---
Pt transferred to CCU-1 with RT and 3RN's at bedside on the vent. No respiratory distress noted. Vent plugged into red outlet. Will cont. to monitor.
--- NOTE | 2017-12-18 21:00 | NUR ---
pt. had loose stool ,held Colace ,trach and oral suction prn, moderate amount of pale thick yellowish secretion.
[2017-12-19] VITALS (8 sets, daily range): BP systolic 118–142; BP diastolic 61–77
--- NOTE | 2017-12-19 02:00 | NUR ---
patient with tachypneic noted,may be in pain Morphine 2 mg iv admin ,position changed with loose stool, small amt noted.
[2017-12-19] MEDS: MORPHINE SULFATE 4 MG/1 ML DISP.SYRIN IV PRN ×2 (02:01→14:45)
[2017-12-19 05:23] LABS: CARBON DIOXIDE 25 mmol/L (21-32); CHLORIDE 109 mmol/L (98-107); CREATININE 1.7 mg/dL (0.6-1.3); GLUCOSE 127 mg/dL (74-106); MAGNESIUM 1.9 mg/dL (1.8-2.4); POTASSIUM 3.9 mmol/L (3.5-5.1); UREA NITROGEN, BLOOD 50 mg/dL (7-18)
--- NOTE | 2017-12-19 05:50 | NUR ---
patient asleep remains stable ,no acute distress noted.
[2017-12-19] MEDS: IV 1/2NS 1000 ML 1,000 ML IV PRN ×2 (06:00→22:30)
[2017-12-19] MEDS: PIPERACILLIN/TAZOBACTAM/D5W 2.25 G in PREMIXED 1 EACH IV SCH ×3 (06:05→17:11)
[2017-12-19] MEDS: PANTOPRAZOLE ORAL SUSPENSION 40 MG SUSPDR.PKT GT SCH (06:06)
--- NOTE | 2017-12-19 07:10 | NUR ---
report received from Alix FELIZ, 87 yr old male who was admitted on 12/12/17 for sepsis and UTI. Patient is in DEANNE status here in CCU. patient is trached to ventilator, ac 14, tv 500 fio2 40%. has a GT for fdg off 6am and back on at 8am. at 45ml/hr. has an IV of 1/2 NS at 70ml/hr via DEENA PICC line. patient has multiple decub ulcers. on first step select air mattress. steel catheter intact , adequate urine output. ekg sinus rhythm. Addendum: 12/19/17 at 0751 by URBIN KAUR RN Amended: Links added.
--- NOTE | 2017-12-19 08:00 | NUR ---
RECEIVED PT ON CONTINUOUS VENT AC 14 VT 500 FIO2 40% . TRACH IN PLACED AND SECURED WITH TRACH TIE. AMBU BAG AT BEDSIDE. ORAL CARE DONE. VENT CHECKED, ALARMS WORKING WELL AND AUDIBLE. NO DISTRESS NOTED AT THIS TIME . WILL CONTINUE TO MONITOR
[2017-12-19] MEDS: FERROUS SULFATE 300 MG/5 ML LIQUID UDC GT SCH (08:22)
[2017-12-19] MEDS: DOCUSATE SODIUM 100 MG/10 ML LIQUID UDC GT SCH ×2 (08:22→20:45)
[2017-12-19] MEDS: ACIDOPHILUS/BULGARICUS CHEW TAB GT SCH (08:23)
[2017-12-19] MEDS: MULTIVIT, IRON, MIN NO. 8, FA TABLET GT SCH (08:23)
[2017-12-19] MEDS: ZINC SULFATE 220 MG CAPSULE GT SCH (08:23)
[2017-12-19] MEDS: ASCORBIC ACID 500 MG TABLET GT SCH (08:23)
[2017-12-19] MEDS: PROTEIN SUPPLEMENT (PROSTAT) 30 ML LIQUID GT SCH (08:23)
[2017-12-19] MEDS: HEPARIN SODIUM,PORCINE 5,000 UNITS/ML VIAL SQ SCH ×2 (08:24→20:45)
[2017-12-19] MEDS: SODIUM HYPOCHLORITE 0.125% 473 ML BOTTLE TP SCH (08:25)
[2017-12-19] MEDS: Z GUARD REMEDY PASTE 57 GM TUBE TOP SCH ×2 (08:25→20:45)
[2017-12-19] MEDS: NUTREN 1.5 1000ML BAG GT PRN (08:44)
[2017-12-19] MEDS ORDERED: NORMAL SALINE FLUSH 10 ML DISP.SYRIN IV PRN (10:00)
[2017-12-19] MEDS ORDERED: NORMAL SALINE IV ONE (11:00)
[2017-12-19] MEDS ORDERED: AMIKACIN IV ONE (11:00)
--- NOTE | 2017-12-19 11:00 | NUR ---
seen by dr adelson. karl miner orders Addendum: 12/19/17 at 1453 by RUBIN KAUR RN Amended: Jay added. Addendum: 12/19/17 at 1455 by RUBIN KAUR RN Amended: Jay added. Addendum: 12/19/17 at 1459 by RUBIN KAUR RN Amended: Links added.
[2017-12-19 11:12] LABS: ALANINE AMINOTRANSFERASE 16 U/L (16-63); ALKALINE PHOSPHATASE 151 U/L (50-136); ASPARTATE AMINOTRANSFERASE 27 U/L (15-37); BILIRUBIN,DIRECT < 0.1 mg/dL (0.0-0.2); BILIRUBIN,TOTAL 0.2 mg/dL (0.2-1.0)
--- NOTE | 2017-12-19 12:00 | NUR ---
seen by dr farahmandian. barajas new orders Addendum: 12/19/17 at 1455 by RUBIN KAUR RN Amended: Jay added. Addendum: 12/19/17 at 1459 by RUBIN KAUR RN Amended: Jay added.
--- NOTE | 2017-12-19 12:04 | NUR ---
Clinical pharmacy note-Amikacin per pharmacy Subjective: To continue Amikacin on this patient for sepsis/UTI. Objective: BUN 50 Scr 1.7 WBC 18.3 (12/18) Temp 98.4 random level: 3.9 Assessment/Plan: Due to elevated srcr will continue to dose by fall off level. Since amikacin random level this am was 3.9, will give amikacin 500mg IVPB x1 at 1100 today. Pharmacist shall checks srcr in am & decide when to order next random level for further dosing. Will follow
--- NOTE | 2017-12-19 14:30 | NUR ---
seen by dr Lake. aware of low albumin. no new orders. Addendum: 12/19/17 at 1459 by RUBIN KAUR RN Amended: Links added.
[2017-12-19] MEDS: NORMAL SALINE FLUSH 10 ML DISP.SYRIN IV SCH ×2 (14:45→22:30)
--- NOTE | 2017-12-19 14:51 | NUR ---
medicated for pain prior to wound care Addendum: 12/19/17 at 1451 by RUBIN KAUR RN Amended: Jay added. Addendum: 12/19/17 at 1453 by RUBIN KAUR RN Amended: Jay added. Addendum: 12/19/17 at 1455 by RUBIN KAUR RN Amended: Links added. Addendum: 12/19/17 at 1459 by RUBIN KAUR RN Amended: Links added.
--- NOTE | 2017-12-19 15:00 | NUR ---
trach care done, piccline dressing changed, gt site care done. Addendum: 12/19/17 at 1504 by RUBIN KAUR RN Amended: Links added.
--- NOTE | 2017-12-19 16:00 | NUR ---
patient moved back to room 206 . remains a DEANNE status. care continued by jose RN. Addendum: 12/19/17 at 1631 by RUBIN KAUR RN Amended: Links added.
--- NOTE | 2017-12-19 16:30 | NUR ---
PT TRANSPORTED TO ROOM 206. NO INCIDENT NOTED,
--- NOTE | 2017-12-19 19:14 | NUR ---
report given to Andrez Addendum: 12/19/17 at 1914 by RUBIN KAUR RN Amended: Links added.
--- NOTE | 2017-12-19 19:29 | NUR ---
Pt received on Yancey vent with settings of AC 14, VT 500, FiO2 40%. Pt is trached with a Portex 8 trach, which is secure and patent. Pt appears to be tolerating vent settings well, no signs of respiratory distress noted. Ambu-bag and back-up trach at bedside. Vent alarms audible and functioning. Will continue to monitor pt throughout shift.
[2017-12-20] MEDS: PIPERACILLIN/TAZOBACTAM/D5W 2.25 G in PREMIXED 1 EACH IV SCH ×5 (00:48→23:50)
[2017-12-20 04:00] VITALS: BP 114/57
[2017-12-20] MEDS: NORMAL SALINE FLUSH 10 ML DISP.SYRIN IV SCH ×3 (05:23→21:26)
--- NOTE | 2017-12-20 06:00 | NUR ---
Tube feeding turned off at this time, to be resumed at 0800 as ordered. Will endorse to day shift nurse.
[2017-12-20] MEDS: PANTOPRAZOLE ORAL SUSPENSION 40 MG SUSPDR.PKT GT SCH (06:15)
[2017-12-20 07:12] LABS: MAGNESIUM 1.9 mg/dL (1.8-2.4); PHOSPHOROUS 4.4 mg/dL (2.5-4.9)
--- NOTE | 2017-12-20 07:30 | NUR ---
PT RECEIVED ON CASE VENT WITH CURRENT SETTINGS OF: AC 14 VT 500 FIO2 40%. NO CHANGES MADE AT THIS TIME. ALARMS CHECKED, ARE ON AND AUDIBLE. NO S/S OF RESPIRATORY DISTRESS NOTED. PORTEX #8 TRACH IS PATENT AND SECURED WITH FOAM TRACH TIES. AMBU BAG AND BACK UP TRACH ARE AT BEDSIDE. ORAL CARE DONE. ABG TO BE DONE AT 0900 TODAY. WILL CONTINUE TO MONITOR THROUGHOUT SHIFT.
[2017-12-20 07:33] LABS: BASOPHILS # (AUTO) 0.1 K/uL (0.0-8.0); BASOPHILS % (AUTO) 0.3 % (0.0-2.0); EOSINOPHILS # (AUTO) 0.5 K/uL (0.0-0.7); EOSINOPHILS % (AUTO) 3.1 % (0.0-7.0); HEMATOCRIT 24.2 % (36.7-47.1); HEMOGLOBIN 8.1 g/dL (12.5-16.3); LYMPHOCYTES % (AUTO) 5.9 % (20.5-51.5); MEAN CORPUSCULAR HGB CONC 33 g/dL (32.5-36.3); MEAN CORPUSCULAR VOLUME 89.9 fL (73.0-96.2); MONOCYTES # (AUTO) 0.8 K/uL (2.0-10.0); MONOCYTES % (AUTO) 4.7 % (0.0-11.0); NEUTROPHILS # (AUTO) 14.3 K/uL (1.8-8.9); PLATELET COUNT (AUTO) 438 K/uL (152-348); WHITE BLOOD COUNT (AUTO) 16.7 K/uL (3.6-10.2)
[2017-12-20 07:38] VITALS: BP 97/54
--- NOTE | 2017-12-20 08:00 | NUR ---
PT ON ISOLATION MDRO. PT AWAKE, NONVERBAL. RESPONSIVE TO VERBAL AND TACTILE STIMULI. TRACH MIDLINE AND PATENT, ON VENT W/ SETTINGS ORDERED. NO RESP DISTRESS NOTED. PLAN OF CARE IMPLEMENTED FOR SKIN INTEGRITY, MONITOR PT FOR S/S OF SEPSIS, MONITOR URINE OUTPUT, AND FALL PRECAUTIONS.
[2017-12-20] MEDS: ZINC SULFATE 220 MG CAPSULE GT SCH (08:28)
[2017-12-20] MEDS: FERROUS SULFATE 300 MG/5 ML LIQUID UDC GT SCH (08:28)
[2017-12-20] MEDS: ASCORBIC ACID 500 MG TABLET GT SCH (08:29)
[2017-12-20] MEDS: DOCUSATE SODIUM 100 MG/10 ML LIQUID UDC GT SCH ×2 (08:29→20:35)
[2017-12-20] MEDS: MULTIVIT, IRON, MIN NO. 8, FA TABLET GT SCH (08:29)
[2017-12-20] MEDS: ACIDOPHILUS/BULGARICUS CHEW TAB GT SCH (08:29)
[2017-12-20] MEDS: PROTEIN SUPPLEMENT (PROSTAT) 30 ML LIQUID GT SCH (08:29)
[2017-12-20 09:22] LABS: ABG BASE EXCESS -1.6 mmol/L; ABG HCO3 21.5 mmol/L; ABG PCO2 29.9 mmHg (35.0-45.0); ABG PH 7.474 (7.350-7.450); ABG PO2 96.3 mmHg (75.0-100.0); ABG SITE LEFT BRACHIAL; ABG TOTAL HEMOGLOBIN 9.2 G/dL (13.5-18.0); COHb 1.1 % (0.5-1.5); MetHb 0.2 % (0.0-1.5); O2Hb 96.5 % (94.0-97.0); VENT MODE VENT - A/C; VT, ABG 500 mL
[2017-12-20 10:14] LABS: EOSINOPHILS % (MANUAL) 2 % (0-8); LYMPHOCYTES % (MANUAL) 5 % (20-40); MONOCYTES % (MANUAL) 5 % (2-10); NEUTROPHILS % (MANUAL) 88 % (42-75)
[2017-12-20] MEDS: SODIUM HYPOCHLORITE 0.125% 473 ML BOTTLE TP SCH (10:28)
[2017-12-20] MEDS: HEPARIN SODIUM,PORCINE 5,000 UNITS/ML VIAL SQ SCH ×2 (10:29→20:37)
[2017-12-20] MEDS: Z GUARD REMEDY PASTE 57 GM TUBE TOP SCH ×2 (10:33→20:35)
[2017-12-20 11:18] VITALS: BP 124/65
--- NOTE | 2017-12-20 14:20 | NUR ---
Clinical pharmacy note-Amikacin per pharmacy Subjective: To continue Amikacin on this patient for sepsis/UTI. Objective: BUN 50 Scr 1.7 WBC 18.3 (12/18) Temp 98.4 random level: 3.9 yesterday at 0600 Assessment/Plan: Due to elevated srcr will continue to dose by fall off level. Last dose amikacin 500mg IVPB x1 at 1100 yesterday 12/19. No dose today based on renal fxn and previous dosing/levels. Pharmacist shall check srcr in am & decide when to order next random level for further dosing. Will follow
[2017-12-20] MEDS: NUTREN 1.5 1000ML BAG GT PRN (15:01)
[2017-12-20 15:48] VITALS: BP 160/81
[2017-12-20 16:26] LABS: CARBON DIOXIDE 25 mmol/L (21-32); CHLORIDE 107 mmol/L (98-107); CREATININE 1.8 mg/dL (0.6-1.3); GLUCOSE 125 mg/dL (74-106); POTASSIUM 4.1 mmol/L (3.5-5.1); UREA NITROGEN, BLOOD 50 mg/dL (7-18)
--- NOTE | 2017-12-20 19:07 | NUR ---
Received pt on Yancey ventilator with current settings of AC 14, VT 500, FiO2 40%. Pt is trached with a Portex 8 trach, which is patent and secured with foam trach ties. No signs of respiratory distress noted, pt appears to be tolerating vent settings well. No changes to vent settings made. Suctioned pt with moderate amount of thick yellowish secretions. Ambu-bag and back-up trach at bedside. Vent alarms checked, on and audible. Will continue to monitor pt throughout shift.
[2017-12-20 20:00] VITALS: BP 134/75
--- NOTE | 2017-12-20 20:00 | NUR ---
Appears more awake, does not follow commands. Chronic trach Portex 8 to vent, no weaning. Comfortable on current vent settings. Stable rhythm and VS. Tube feedings well tolerated per GTube, scant residuals. Aspiration precautions observed at all times. Adequate urine output per steel. Multiple wounds with all dressings intact. Turned/positioned q 2hr and PRN. Nursing comfort measures maintained. Contact isolation observed at all times. Please see [facility] flowsheet for full assessment and clinical data.
[2017-12-21] VITALS (8 sets, daily range): BP systolic 110–150; BP diastolic 59–70
[2017-12-21] MEDS: PIPERACILLIN/TAZOBACTAM/D5W 2.25 G in PREMIXED 1 EACH IV SCH ×3 (05:17→17:54)
[2017-12-21] MEDS: NORMAL SALINE FLUSH 10 ML DISP.SYRIN IV SCH ×2 (05:17→13:15)
[2017-12-21] MEDS: PANTOPRAZOLE ORAL SUSPENSION 40 MG SUSPDR.PKT GT SCH (05:44)
[2017-12-21] MEDS: Z GUARD REMEDY PASTE 57 GM TUBE TOP PRN (05:45)
--- NOTE | 2017-12-21 06:00 | NUR ---
Stable night. VS and rhythm stable. Resistive to care, with guarding when touch. All extremities stiff and contracted. Turned/positioned q 2hr and PRN. Kept comfortable at all times. Sponged again this AM. Trach care and GT care done. Please see [facility] flowsheet for trends and clinical data.
[2017-12-21 06:50] LABS: BASOPHILS % (AUTO) 0.1 % (0.0-2.0); EOSINOPHILS # (AUTO) 0.5 K/uL (0.0-0.7); HEMATOCRIT 23.2 % (36.7-47.1); HEMOGLOBIN 7.7 g/dL (12.5-16.3); LYMPHOCYTES # (AUTO) 0.9 K/uL (20.0-40.0); LYMPHOCYTES % (AUTO) 5.3 % (20.5-51.5); MEAN CORPUSCULAR HEMOGLOBIN 30.1 uug (23.8-33.4); MEAN CORPUSCULAR HGB CONC 33 g/dL (32.5-36.3); MEAN CORPUSCULAR VOLUME 90.5 fL (73.0-96.2); MONOCYTES # (AUTO) 0.9 K/uL (2.0-10.0); MONOCYTES % (AUTO) 5.4 % (0.0-11.0); NEUTROPHILS # (AUTO) 14.7 K/uL (1.8-8.9); NEUTROPHILS % (AUTO) 86.2 % (38.5-71.5); PLATELET COUNT (AUTO) 409 K/uL (152-348); RED BLOOD CELL COUNT(AUTO) 2.57 MIL/uL (4.06-5.63); WHITE BLOOD COUNT (AUTO) 17.1 K/uL (3.6-10.2)
[2017-12-21 07:10] LABS: ALANINE AMINOTRANSFERASE 11 U/L (16-63); ALKALINE PHOSPHATASE 126 U/L (50-136); ASPARTATE AMINOTRANSFERASE 15 U/L (15-37); BILIRUBIN,TOTAL 0.2 mg/dL (0.2-1.0); CARBON DIOXIDE 28 mmol/L (21-32); CHLORIDE 106 mmol/L (98-107); CREATININE 1.8 mg/dL (0.6-1.3); GLUCOSE 112 mg/dL (74-106); PHOSPHOROUS 4.4 mg/dL (2.5-4.9); POTASSIUM 4.4 mmol/L (3.5-5.1); TOTAL PROTEIN, SERUM 7.2 g/dL (6.4-8.2); UREA NITROGEN, BLOOD 51 mg/dL (7-18)
--- NOTE | 2017-12-21 07:15 | NUR ---
Pt received in bed, laying semi-Torres's.. No visible s/s of distress, unable to communicate.. Pt on vent: Yancey with settings: A/C 14, Vt 500, FiO2 40%, tolerating well, no changes made at this time.. Trach in place and secure with ties..
[2017-12-21 07:53] LABS: BAND % (MANUAL) 1 % (0-10); BASOPHILS % (MANUAL) 1 % (0-2); EOSINOPHILS % (MANUAL) 3 % (0-8); LYMPHOCYTES % (MANUAL) 6 % (20-40); MONOCYTES % (MANUAL) 3 % (2-10); MYELOCYTES % 2 % (0-0); NEUTROPHILS % (MANUAL) 84 % (42-75)
--- NOTE | 2017-12-21 08:00 | NUR ---
Awake, on moderate high back rest. Trach to vent with settings of AC14, TV 500, FIO2 40%, with O2 sat of 99%.
--- NOTE | 2017-12-21 09:30 | NUR ---
Transferred to CCU bed 2. Oral care and trach care done. Nutren per G tube, well tolerated
[2017-12-21] MEDS: DOCUSATE SODIUM 100 MG/10 ML LIQUID UDC GT SCH (09:53)
[2017-12-21] MEDS: FERROUS SULFATE 300 MG/5 ML LIQUID UDC GT SCH (09:53)
[2017-12-21] MEDS: ACIDOPHILUS/BULGARICUS CHEW TAB GT SCH (09:53)
[2017-12-21] MEDS: ASCORBIC ACID 500 MG TABLET GT SCH (09:54)
[2017-12-21] MEDS: HEPARIN SODIUM,PORCINE 5,000 UNITS/ML VIAL SQ SCH (09:55)
[2017-12-21] MEDS: ZINC SULFATE 220 MG CAPSULE GT SCH (09:56)
[2017-12-21] MEDS: MULTIVIT, IRON, MIN NO. 8, FA TABLET GT SCH (09:56)
[2017-12-21] MEDS: PROTEIN SUPPLEMENT (PROSTAT) 30 ML LIQUID GT SCH (09:57)
[2017-12-21] MEDS: Z GUARD REMEDY PASTE 57 GM TUBE TOP SCH (09:58)
[2017-12-21] MEDS: SODIUM HYPOCHLORITE 0.125% 473 ML BOTTLE TP SCH (09:59)
[2017-12-21] MEDS: NUTREN 1.5 1000ML BAG GT PRN (10:00)
[2017-12-21] MEDS ORDERED: CADEXOMER IODINE 40 GM TUBE TOP SCH (14:00)
--- NOTE | 2017-12-21 14:35 | NUR ---
Clinical pharmacy note-Amikacin per pharmacy Subjective: To continue Amikacin on this patient for sepsis/UTI. Objective: BUN 51 Scr 1.8 WBC 17.1 Temp 98.4 Assessment/Plan: Due to elevated srcr, will continue to dose by fall off level. Last dose amikacin 500mg IVPB x1 at 1100 on 12/19. No dose today based on renal fxn and previous dosing/levels. Next random level is on order for tomorrow am at 0600. Will follow level for further dosing.
--- NOTE | 2017-12-21 15:14 | NUR ---
1 unit PRBC blood transfusion started
[2017-12-21] MEDS ORDERED: PROTEIN SUPPLEMENT (PROSTAT) 30 ML LIQUID GT SCH (17:00)
[2017-12-21] MEDS ORDERED: CADE40GE2 TOP (17:46)
[2017-12-21] MEDS ORDERED: SODI473S8 TP (17:46)
[2017-12-21] MEDS ORDERED: MENT71OI TOP (17:46)
[2017-12-21] MEDS ORDERED: PIPE2.257 IV (17:46)
[2017-12-21] MEDS ORDERED: ALBU2.5V7 NEB (17:46)
[2017-12-21] MEDS ORDERED: RXAMI XX (17:46)
--- NOTE | 2017-12-21 18:10 | NUR ---
PRBC transfusion finished. No reaction noted.
[2017-12-21] MEDS ORDERED: HEPA500014 IJ (21:49)
[2017-12-21] MEDS ORDERED: BISA10SU12 RC (21:49)
[2017-12-21] MEDS ORDERED: TRAM50TA2 GT (21:49)
[2017-12-21] MEDS ORDERED: AMIN30LI2 GT (21:49)
== END 2017-12-21 19:20 | DRG 853 ==
LOC: ER 22:29 → DOU 12-12 01:34 → TELE-TD 12-12 02:02 → CCU 12-14 12:53 → TELE-TD 12-15 18:45 → CCU 12-18 21:25 → TELE-TD 12-19 16:18 → CCU 12-21 08:54
PROVIDERS: ADMIT Internal Medicine; ATTEND Internal Medicine
PROC: 02HV33Z Insertion of Infusion Device into Superior Vena Cava, Percutaneous Approach (ICD-10-PCS; principal; 2017-12-12)
PROC: 5A1955Z Respiratory Ventilation, Greater than 96 Consecutive Hours (ICD-10-PCS; principal; 2017-12-12)
PROC: 0JB70ZZ Excision of Back Subcutaneous Tissue and Fascia, Open Approach (ICD-10-PCS; 2017-12-14)
PROC: 0KBP0ZZ Excision of Left Hip Muscle, Open Approach (ICD-10-PCS; 2017-12-14)
PROC: 0KBN0ZZ Excision of Right Hip Muscle, Open Approach (ICD-10-PCS; 2017-12-14)
PROC: 30233N1 Transfusion of Nonautologous Red Blood Cells into Peripheral Vein, Percutaneous Approach (ICD-10-PCS; 2017-12-21)
DX: A41.9 Sepsis, unspecified organism (principal); J96.21 Acute and chronic respiratory failure with hypoxia; N17.0 Acute kidney failure with tubular necrosis; J95.851 Ventilator associated pneumonia; E43 Unspecified severe protein-calorie malnutrition; G93.1 Anoxic brain damage, not elsewhere classified; R65.21 Severe sepsis with septic shock; I50.33 Acute on chronic diastolic (congestive) heart failure; L89.104 Pressure ulcer of unspecified part of back, stage 4; Z99.11 Dependence on respirator [ventilator] status; L89.324 Pressure ulcer of left buttock, stage 4; R53.2 Functional quadriplegia; L89.154 Pressure ulcer of sacral region, stage 4; L89.314 Pressure ulcer of right buttock, stage 4; L89.224 Pressure ulcer of left hip, stage 4; L89.214 Pressure ulcer of right hip, stage 4; D68.59 Other primary thrombophilia; I69.359 Hemiplegia and hemiparesis following cerebral infarction affecting unspecified side; C34.90 Malignant neoplasm of unspecified part of unspecified bronchus or lung; B48.8 Other specified mycoses; I13.0 Hypertensive heart and chronic kidney disease with heart failure and stage 1 through stage 4 chronic kidney disease, or unspecified chronic kidney disease; N39.0 Urinary tract infection, site not specified; Z68.1 Body mass index [BMI] 19.9 or less, adult; E87.0 Hyperosmolality and hypernatremia; D62 Acute posthemorrhagic anemia; M46.28 Osteomyelitis of vertebra, sacral and sacrococcygeal region; B96.4 Proteus (mirabilis) (morganii) as the cause of diseases classified elsewhere; Z93.0 Tracheostomy status; R13.10 Dysphagia, unspecified; D63.8 Anemia in other chronic diseases classified elsewhere; Z93.1 Gastrostomy status; N40.0 Benign prostatic hyperplasia without lower urinary tract symptoms; Z87.440 Personal history of urinary (tract) infections; I69.391 Dysphagia following cerebral infarction; R62.7 Adult failure to thrive; N18.3 Chronic kidney disease, stage 3 (moderate); G30.9 Alzheimer's disease, unspecified; F02.80 Dementia in other diseases classified elsewhere, unspecified severity, without behavioral disturbance, psychotic disturbance, mood disturbance, and anxiety; M24.562 Contracture, left knee; M24.561 Contracture, right knee; K21.9 Gastro-esophageal reflux disease without esophagitis; K31.84 Gastroparesis; I73.9 Peripheral vascular disease, unspecified; E86.0 Dehydration; E03.9 Hypothyroidism, unspecified; E87.6 Hypokalemia; I25.10 Atherosclerotic heart disease of native coronary artery without angina pectoris; M81.0 Age-related osteoporosis without current pathological fracture; Z85.21 Personal history of malignant neoplasm of larynx; Z87.01 Personal history of pneumonia (recurrent); A49.9 Bacterial infection, unspecified; I77.811 Abdominal aortic ectasia; J44.9 Chronic obstructive pulmonary disease, unspecified
CPT/HCPCS: 36415; 36600; 70030-TC; 71045; 72131; 83605; 83735; 84100; 84156; 84300; 84443; 85025; 85651; 85730; 86850; 86900; 86901; 86920; 87040; 87070; 87077; 87086; 87400; 93005; 93307; 94002; 94003; A4217; A4663; C1751; J0278; J0713; J1100; J1644; J2270; J2543; J3370; J3475; J3490; J7030; J7042; J7050; J7060; P9016-BL; P9021

== ENCOUNTER 2017-12-21 21:28 | Inpatient (IN) | payer OTHER, MEDICARE ==
[~2017-12-21] VITALS: Ht 162.6 cm; Wt 44.0 kg
[~2017-12-21 21:28] MED LIST: ACET-2154 GT; ACET-2605 PO; ALBU2.5V7 NEB; ASCO500C16 GT; BISA5TAB13 PR; CADE40GE2 TOP; CRAN3875 GT; DOCU-141 GT; FERR220S2 GT; HEPARIN 5000 UNIT INJ; LACT1CAP61 GT; MAGN400O6 GT; MENT71OI TOP; METO-356 GT; MULT-213 GT; NA P133E RC; ONDA4TAB5 GT; PANT40TA2 GT; PIPE2.257 IV; RXAMI XX; SODI473S8 TP; TRAM50TA2 GT; ZINC220C8 GT; [UNRECOGNIZED DRUG - OTHER] GT
--- NOTE | 2017-12-21 21:45 | NUR ---
Patient came to ER from [facility] for fever, congested, has rhonchi on bilateral lower lobes, diminished on upper lobes, has trach and on ventilator, has PICC on right upper arm. Placed patient on monitor, EKG performed.
[2017-12-21] MEDS ORDERED: TRAM50TA2 GT (21:49)
[2017-12-21] MEDS ORDERED: AMIN30LI2 GT (21:49)
[2017-12-21] MEDS ORDERED: HEPA500014 IJ (21:49)
[2017-12-21] MEDS ORDERED: BISA10SU12 RC (21:49)
--- NOTE | 2017-12-21 22:10 | NUR ---
PT WAS A TRANSFER BY AMBULANCE TO OTHER FACILITY WITH VENT , PT HAS PORTEX #[address], WAS BROUGHT BACK TO [facility] BY AMBULANCE, PT PLACED ON CASE VENT WITH CURRENT VENT SETTINGS, A/C 14, VT 500ML, 40%, SUCTIONED PALE YELL TINGE SECRETIONS, CHANGE HME AND PANG. Barry VICTORIAP Addendum: 12/21/17 at 2223 by ANUJ ALATORRE RT Amended: Links added.
[2017-12-21] MEDS ORDERED: IV NORMAL SALINE 1000 ML BAG IV ONE (22:45)
[2017-12-21] MEDS ORDERED: DEXAMETHASONE SOD PHOSPHATE 4 MG INJ IV ONE (22:45)
[2017-12-21] MEDS ORDERED: PIPERACILLIN SODIUM/TAZOBACTAM 3.375 G in IV DEXTROSE 5% 50 ML IV ONE (22:45)
--- NOTE | 2017-12-21 23:00 | NUR ---
Labs drawn via right upper arm PICC, meds administered.
[2017-12-21 23:42] LABS: BASOPHILS # (AUTO) 0.2 K/uL (0.0-8.0); BASOPHILS % (AUTO) 0.9 % (0.0-2.0); EOSINOPHILS # (AUTO) 0.3 K/uL (0.0-0.7); EOSINOPHILS % (AUTO) 1.1 % (0.0-7.0); HEMATOCRIT 30.1 % (36.7-47.1); HEMOGLOBIN 9.9 g/dL (12.5-16.3); LYMPHOCYTES # (AUTO) 0.8 K/uL (20.0-40.0); LYMPHOCYTES % (AUTO) 3.5 % (20.5-51.5); MEAN CORPUSCULAR HEMOGLOBIN 29.7 uug (23.8-33.4); MEAN CORPUSCULAR HGB CONC 33 g/dL (32.5-36.3); MEAN CORPUSCULAR VOLUME 90.5 fL (73.0-96.2); MONOCYTES # (AUTO) 1.3 K/uL (2.0-10.0); MONOCYTES % (AUTO) 5.3 % (0.0-11.0); NEUTROPHILS # (AUTO) 21.2 K/uL (1.8-8.9); NEUTROPHILS % (AUTO) 89.2 % (38.5-71.5); PLATELET COUNT (AUTO) 446 K/uL (152-348); RED BLOOD CELL COUNT(AUTO) 3.32 MIL/uL (4.06-5.63); WHITE BLOOD COUNT (AUTO) 23.8 K/uL (3.6-10.2)
[2017-12-21] MEDS ORDERED: DEXAMETHASONE SOD PHOSPHATE 10 MG INJ ONE (23:43)
[2017-12-21] MEDS ORDERED: PIPERACILLIN SODIUM/TAZO 3.375 GM VIAL ONE (23:43)
[2017-12-21 23:56] LABS: CARBON DIOXIDE 26 mmol/L (21-32); CHLORIDE 104 mmol/L (98-107); CREATININE 1.8 mg/dL (0.6-1.3); GLUCOSE 111 mg/dL (74-106); POTASSIUM 4.5 mmol/L (3.5-5.1); UREA NITROGEN, BLOOD 55 mg/dL (7-18)
[2017-12-22] MEDS ORDERED: AMIKACIN SULFATE 500 MG/2 ML VIAL IV ONE
--- NOTE | 2017-12-22 | NUR ---
Pt in bed, no signs of acute distress.
[2017-12-22 00:09] LABS: ALANINE AMINOTRANSFERASE 13 U/L (16-63); ALKALINE PHOSPHATASE 127 U/L (50-136); ASPARTATE AMINOTRANSFERASE 18 U/L (15-37); BILIRUBIN,DIRECT 0.1 mg/dL (0.0-0.2); BILIRUBIN,TOTAL 0.4 mg/dL (0.2-1.0); TOTAL PROTEIN, SERUM 8.1 g/dL (6.4-8.2)
[2017-12-22] MEDS ORDERED: ACETAMINOPHEN 325 MG TABLET GT PRN (00:30)
[2017-12-22] MEDS ORDERED: FLEET ENEMA 133 ML BOTTLE RC PRN (00:30)
[2017-12-22] MEDS ORDERED: DOSING PER PHARMACY-AMIKACIN IV XX PRN (00:30)
[2017-12-22] MEDS ORDERED: ALBUTEROL SULFATE 2.5 MG/3 ML NEBU NEB PRN (00:30)
[2017-12-22] MEDS ORDERED: BISACODYL 10 MG SUPP.RECT RC PRN (00:30)
[2017-12-22] MEDS ORDERED: AMIKACIN SULFATE 500 MG/2 ML VIAL ONE (00:39)
--- NOTE | 2017-12-22 01:00 | NUR ---
Pt in bed, no signs of acute distress.
--- NOTE | 2017-12-22 02:38 | NUR ---
Passed report to TRINI Toscano.
--- NOTE | 2017-12-22 03:30 | NUR ---
received patient from ER dx: PNA and fever [facility] admit . .patient was just discharge here at about 1920 and going to [facility] rehab ,as per ambulance and RN YUDITH in the rehab patient with temp 101.7 and hypertensive and they cannot accept the patient .informed nursing sales service supervisor .patient back to ER.admitted patient and data collected from chart . photo taken patient with multiple decubitus see photo in chart . called [facility] for orders .: NASREEN continue with same orders and medication . connected patient to monitor and respiratory therapist at bedside and manage the vent
[2017-12-22 04:00] VITALS: BP 144/38
[2017-12-22] MEDS ORDERED: PIPERACILLIN/TAZO/D5W 2.25 GM FROZ.PIGGY IV SCH (06:00)
--- NOTE | 2017-12-22 07:30 | NUR ---
RECIEVED PT LYING IN BED WITH HOB ELEVATED AT 35DEGREES. EYES OPEN TO SLIGHT TOUCH OR MOVEMENT, NON-VERBAL. 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 SETTING OF AC14, VT-500, FIO2-40%. O2SAT 97-100%. LUNGS HAS SCATTERED RHONCHIS. SUCTION SECRETIONS, MODERATE AMOUNT OF THICK YELLOW PHLEGM. GT INTACT AND STILL CLAMPED PENDING ORDER FOR TUBE FEEDING. PT HAS MULTIPLE DECUBITUS (SEE SKIN ASSESSMENT) FOLEYCATHETER INTACT DRAINING CLEAR YELLOW URINE.
[2017-12-22 08:00] VITALS: BP 132/71
[2017-12-22] MEDS ORDERED: PROTEIN SUPPLEMENT (PROSTAT) 30 ML LIQUID GT SCH (08:00)
[2017-12-22] MEDS: PIPERACILLIN/TAZOBACTAM/D5W 2.25 G in PREMIXED 1 EACH IV SCH ×2 (08:23→14:09)
[2017-12-22] MEDS ORDERED: ACIDOPHILUS/BULGARICUS CHEW TAB GT SCH (09:00)
[2017-12-22] MEDS ORDERED: Medication Not On Formulary EA (Cran/Vitc/Mannose/Inulin/Brom (Uti-Stat Liquid) 30 ML) GT SCH (09:00)
[2017-12-22] MEDS ORDERED: DOCUSATE SODIUM 100 MG CAPSULE PO SCH (09:00)
[2017-12-22] MEDS ORDERED: NUTREN 1.5 1000ML BAG GT PRN (09:00)
[2017-12-22] MEDS ORDERED: Z GUARD REMEDY PASTE 57 GM TUBE TOP SCH (09:00)
[2017-12-22] MEDS ORDERED: ASCORBIC ACID 500 MG TABLET GT SCH (09:00)
[2017-12-22] MEDS ORDERED: ZINC SULFATE 220 MG CAPSULE GT SCH (09:00)
[2017-12-22] MEDS ORDERED: DOCUSATE SODIUM 100 MG/10 ML LIQUID UDC GT SCH (09:00)
[2017-12-22] MEDS ORDERED: FERROUS SULFATE 300 MG/5 ML LIQUID UDC GT SCH (09:00)
[2017-12-22] MEDS ORDERED: MULTIVIT, IRON, MIN NO. 8, FA TABLET GT SCH (09:00)
[2017-12-22] MEDS ORDERED: TRAMADOL HCL 50 MG TABLET GT SCH (09:00)
--- NOTE | 2017-12-22 09:30 | NUR ---
SEEN AND EXAMINED BY DR MARES WITH NEW ORDERS.
[2017-12-22 12:00] VITALS: BP 124/64
--- NOTE | 2017-12-22 12:00 | NUR ---
STARTED TUBE FEEDING NUTREN AT 45ML/HR VIA GT ORDERED. TOLERATED WELL. NO RESIDUALS.
--- NOTE | 2017-12-22 13:45 | NUR ---
REPORT GIVEN TO AGATA FELIZ AT [facility]. ARRANGED FOR AN AMBULANCE TRANSPORT.
--- NOTE | 2017-12-22 14:00 | NUR ---
DISCHARGE ORDER BY DR JIMENEZ BACK TO [facility]. CONDITION IS STABLE.
--- NOTE | 2017-12-22 14:30 | NUR ---
PM CARE RENDERED. PT HAS 1 LIQUIDY BM SMALL AMOUNT.
--- NOTE | 2017-12-22 15:47 | NUR ---
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 Objective: BUN/Scr 55/1.8(12/21) WBC 23.8(12/21) Temp 98.2 New Blood culture pending. Assessment/Plan: Patient was given Amikacin 500mg in ER today at 0052(was on amikacin per level from 12/12 to 12/21 prior to DC ). Will continue to dose by fall-off random level due to decreased renal function. Next Amikacin level is on order for 12/24/17 at 0600. Will follow the level for further dosing.
[2017-12-22 16:00] VITALS: BP 130/73
--- NOTE | 2017-12-22 16:25 | NUR ---
PT IS DISCHARGED VIA AMBULANCE WITH RT TO GO TO [facility]. NO APPARENT DISTRESS NOTED. CONDITION IS STABLE.
--- NOTE | 2017-12-22 16:30 | NUR ---
patient was transferred to another facility at around 1515 today. no s/s of respiratory distress all day.
== END 2017-12-22 16:25 | DRG 871 ==
LOC: ER 21:29 → CCU 12-22 02:05
PROVIDERS: ADMIT Internal Medicine; ATTEND Internal Medicine
PROC: 5A1935Z Respiratory Ventilation, Less than 24 Consecutive Hours (ICD-10-PCS; principal; 2017-12-22)
DX: A41.9 Sepsis, unspecified organism (principal); N17.0 Acute kidney failure with tubular necrosis; J96.21 Acute and chronic respiratory failure with hypoxia; J95.851 Ventilator associated pneumonia; E43 Unspecified severe protein-calorie malnutrition; G93.40 Encephalopathy, unspecified; L89.104 Pressure ulcer of unspecified part of back, stage 4; I50.33 Acute on chronic diastolic (congestive) heart failure; L89.324 Pressure ulcer of left buttock, stage 4; Z99.11 Dependence on respirator [ventilator] status; L89.314 Pressure ulcer of right buttock, stage 4; L89.154 Pressure ulcer of sacral region, stage 4; N39.0 Urinary tract infection, site not specified; B48.8 Other specified mycoses; I13.0 Hypertensive heart and chronic kidney disease with heart failure and stage 1 through stage 4 chronic kidney disease, or unspecified chronic kidney disease; C34.90 Malignant neoplasm of unspecified part of unspecified bronchus or lung; E87.0 Hyperosmolality and hypernatremia; I69.359 Hemiplegia and hemiparesis following cerebral infarction affecting unspecified side; D68.59 Other primary thrombophilia; Z68.1 Body mass index [BMI] 19.9 or less, adult; M46.28 Osteomyelitis of vertebra, sacral and sacrococcygeal region; R65.20 Severe sepsis without septic shock; R13.10 Dysphagia, unspecified; B96.4 Proteus (mirabilis) (morganii) as the cause of diseases classified elsewhere; B96.89 Other specified bacterial agents as the cause of diseases classified elsewhere; Z16.24 Resistance to multiple antibiotics; N40.0 Benign prostatic hyperplasia without lower urinary tract symptoms; R62.7 Adult failure to thrive; N18.3 Chronic kidney disease, stage 3 (moderate); D63.8 Anemia in other chronic diseases classified elsewhere; E87.6 Hypokalemia; G30.9 Alzheimer's disease, unspecified; F02.80 Dementia in other diseases classified elsewhere, unspecified severity, without behavioral disturbance, psychotic disturbance, mood disturbance, and anxiety; I69.391 Dysphagia following cerebral infarction; I25.10 Atherosclerotic heart disease of native coronary artery without angina pectoris; J44.9 Chronic obstructive pulmonary disease, unspecified; L89.890 Pressure ulcer of other site, unstageable; M81.0 Age-related osteoporosis without current pathological fracture; K21.9 Gastro-esophageal reflux disease without esophagitis; K31.84 Gastroparesis; Z85.21 Personal history of malignant neoplasm of larynx; Z93.0 Tracheostomy status; Z93.1 Gastrostomy status
CPT/HCPCS: 36415; 70030-TC; 71045; 83605; 85025; 85730; 87040; 93005; 94002; 94003; A4663; J0278; J1100; J2543; J7030; J7060